=== PATIENT | female | born 1995 | race Caucasian/White ===

== ENCOUNTER 2017-10-18 11:45 | Emergency (ER) | payer OTHER, SELFPAY ==
[2017-10-18 11:46] VITALS: BP 155/97; PULSE 107; RESP 17; TEMP 37; O2SAT 95; BMI 30.5
[2017-10-18 12:57] LABS: Absolute Lymphocyte Count 2.38 X10^3/ul (0.83-4.51); Absolute Neutrophil Count 3.3 X10^3/uL (2.0-7.7); Basophil# 0.06 X10^3/uL; Basophil% 0.9 % (0-1); Eosinophil# 0.12 X10^3/uL; Eosinophils% 1.9 % (0-5); Hematocrit 41.2 % (37-47); Hemoglobin 13.8 g/dl (12.0-15.0); Lymphocyte # 2.38 X10^3/ul (4.0); Lymphocyte % 37.5 % (19-41); Mean Corp Hgb Conc 33.5 g/gl (32-36); Mean Corpuscular Hgb 30.5 pg (27.0-32.0); Mean Corpuscular Volume 90.9 fL (81-99); Monocyte# 0.53 X10^3/uL; Monocyte% 8.3 % (0-10); Neutrophil # 3.25 X10^3/uL (2.7-7.7); Neutrophil % 51.2 % (47-70); Platelet Count 285 K/mm3 (150-450); RBC Distribution Width CV 12.1 % (11.6-14.6); RBC Distribution Width SD 39.3 fl (35.1-43.9); Red Blood Count 4.53 M/mm3 (4.2-5.4); White Blood Count 6.4 K/mm3 (4.4-11.0)
[2017-10-18 12:58] LABS: POSITIVE COUNT NO; POSITIVE DIFFERENTIAL NO; POSITIVE MORPHOLOGY NO
[2017-10-18] MEDS: Mag Hydrox/Al Hydrox/Simeth 30 ML UDC PO (13:01)
[2017-10-18] MEDS: Ketorolac 30 MG/ML Syringe IV (13:01)
[2017-10-18] MEDS: 0.9% Normal Saline 1,000 ML 1000 ML IV (13:01)
[2017-10-18 13:06] LABS: Anion Gap 9 (5-15); BUN 12 mg/dL (7-18); BUN/Creat Ratio 18.8 RATIO (10-20); Calcium,Total 8.8 mg/dL (8.5-10.1); Chloride 106 mmol/L (98-107); Creatinine, Serum 0.64 mg/dL (0.55-1.02); EST Glomerular Filtration Rate 124 mL/min (>60); Est Glom Filt Rate - Afr Amer 150 mL/min (>60); Estimated Creatinine Clearance 115.02 ml/min; Glucose 84 mg/dL (70-110); Potassium 4.2 mmol/L (3.5-5.1); Sodium Level 141 mmol/L (136-145)
[2017-10-18 13:11] LABS: Pregnancy, Serum, hCG Quali. NEGATIVE Negative (0-9 Nonpreg)
--- NOTE | 2017-10-18 13:15 | ED.VISSUMM ---
- ER Visit Summary Date of Service: 10/18/17 Chief Complaint: Abdominal pain History of Present Illness: The patient is a [address] Segura. She reports that she has abdominal pain began approximately 20 minutes ago. It is a sharp diffuse pain that is 10 out of 10 at worst and 7 out of 10 currently. Is worsened by nothing relieved by nothing. She denies any nausea, vomiting, or diarrhea. Her last bowel was yesterday. She denies any melena or hematochezia. She reports that she has blood in her stool before and during her menstrual cycle that is bright red. She does have a history of hemorrhoids. Her last menstrual period was approximately 3 weeks ago. She denies any dysuria or frequency. No history of fatty food intolerance. No family history of gallstones, Crohn's, or ulcerative colitis. Patient reports that she has not had this previously. Physical Examination: Vitals: Stable. Afebrile. General: Well-nourished and well-developed. Head: Normocephalic atraumatic. Neck: Supple, no lymphadenopathy. No JVD. Nontender. Cardiovascular: Regular rate and rhythm. No murmurs. Respiratory: No respiratory distress. Clear to auscultation bilaterally. Abdominal: Soft, mild diffuse tenderness to palpation, nondistended, normal bowel sounds. No guarding, rebound, or peritoneal signs. Back: Nontender. Extremities: Nontender, no edema. Skin: Normal color, no rash. Neurologic: Alert and oriented ?3. Cranial nerves II through XII are intact. Normal strength and sensation. Psych: Normal affect. Test Results: CBC is normal. Chem-7 is normal. test is negative. Emergency Department Course and Treatment: Patient is given dose of Toradol IV. She was treated with Maalox and simethicone p.o. She has had significant relief. Treatment Plan: Patient will be discharged with instructions to follow-up with her primary care physician in 1-2 days if not improving. Return to the emergency department for any worsening symptoms. Disposition: To home in improved and stable condition. Impression: 1. Abdominal pain, uncertain cause. This note was generated with [employer] software. It may contain incorrect words, spelling, and punctuation that were not noted in review of the chart prior to signing ED Disposition - Plan for ED Patient: Chief Complaint: Abd Pain Instructions: ED Abdominal Pain Unkn Cause Referrals: Viktoriya Segura PA-C [Primary Care Provider] - 1-2 Days if not improving
[2017-10-18 13:35] VITALS: BP 115/76; PULSE 83; RESP 16; O2SAT 99
== END 2017-10-18 13:39 | disposition home or self-care (01) ==
LOC: ED 12:31
PROVIDERS: Emergency Provider Emergency Medicine; Family Provider Family Medicine; PCP Family Medicine
DX: R10.9 Unspecified abdominal pain (principal); Z87.19 Personal history of other diseases of the digestive system
CPT/HCPCS: 80048; 84703; 85025; 99284; J7030

== ENCOUNTER 2021-12-31 08:38 | Outpatient (CLI) | payer BC, SELFPAY ==
[2021-12-31 09:45] LABS: Hematocrit 37.6 % (37-47); Hemoglobin 12.4 g/dL (12.0-15.0); Mean Corpuscular Volume 90.8 fL (81-99); Platelet Count 238 K/mm3 (150-450); RBC Distribution Width SD 42.6 fl (35.1-43.9); Red Blood Count 4.14 M/mm3 (4.2-5.4); White Blood Count 11.1 K/mm3 (4.4-11.0)
[2021-12-31 09:49] LABS: Glucose Challenge Gest 1H 50g 128 mg/dL (70-140)
== END 2021-12-31 23:59 | disposition home or self-care (01) ==
LOC: WOBLAB 08:39
PROVIDERS: PCP Family Medicine; Visit Provider Student in an Organized Health Care Education/Training Program
DX: Z34.83 Encounter for supervision of other normal pregnancy, third trimester (principal)
CPT/HCPCS: 36415; 82950; 85027

== ENCOUNTER 2022-04-01 07:25 | Inpatient (IN) | payer BC, MEDICAID, SELFPAY ==
[2022-04-01] VITALS (13 sets, daily range): BP systolic 106–136; BP diastolic 55–80; PULSE 84–121; TEMP 36.3–36.8; O2SAT 94–99; BMI 36.8
[2022-04-01] MEDS: Lactated Ringers 1,000 ML 50 ML IV (07:45)
[2022-04-01 08:13] LABS: Absolute Lymphocyte Count 2.24 X10^3/uL (0.83-4.51); Absolute Neutrophil Count 5.3 X10^3/uL (2.0-7.7); Basophil# 0.03 X10^3/uL; Basophil% 0.4 % (0-1); Eosinophil# 0.06 X10^3/uL; Eosinophils% 0.7 % (0-5); Hematocrit 36.2 % (37-47); Hemoglobin 11.9 g/dL (12.0-15.0); Lymphocyte # 2.24 X10^3/ul (0.83-4.51); Lymphocyte % 26.9 % (19-41); Mean Corp Hgb Conc 32.9 g/dL (32-36); Mean Corpuscular Hgb 29.5 pg (27.0-32.0); Mean Corpuscular Volume 89.8 fL (81-99); Mean Platelet Vol. 10.7 fl (6.2-12.0); Monocyte# 0.61 X10^3/uL; Monocyte% 7.3 % (0-10); NRBC Flagged by Analyzer 0 % (0-5); Neutrophil # 5.33 X10^3/uL (2.7-7.7); Neutrophil % 63.9 % (47-70); Platelet Count 188 K/mm3 (150-450); RBC Distribution Width CV 13.4 % (11.6-14.6); RBC Distribution Width SD 43.7 fl (35.1-43.9); Red Blood Count 4.03 M/mm3 (4.2-5.4); White Blood Count 8.3 K/mm3 (4.4-11.0)
--- NOTE | 2022-04-01 08:23 | HP.PCM.OB_ITS ---
History and Physical Date of Admission: 04/01/22 HPI: 26-year-old at 40/5 weeks, ANGELINA 03/27/2022 by LMP consistent with early ultrasound, admitted for term induction of labor. Denies regular contractions, leaking of fluid, vaginal bleeding. Reports movement. Denies headache, vision changes, chest pain or shortness of breath, nausea or vomiting, diarrhea or constipation, fevers or chills. complicated by: Class I obesity, rubella equivocal, GBS positive. 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 Cyst on left knee removed 2000 2. Pilonidal cyst 2018 Allergies: No known drug allergies Family history: Noncontributory Social history: Denies tobacco, alcohol, drug use Review of system: Negative otherwise stated above Physical exam Vitals:Temp 98.3 ?F, pulse 112, blood pressure 136/80, pulse ox 97% on room air General: No acute distress Cardiac: Regular rhythm Respiratory: Clear to auscultation bilaterally Abdomen: Soft, nontender, gravid Extremities: Minimal edema Neurologic: Cranial nerves II through XII grossly intact, no focal deficits Musculoskeletal: Strength 5 out of 5 throughout all extremities Cervical exam: Fingertip per RN labs: A positive Rubella equivocal Hepatitis B neg Syphilis nonreactive HIV negative Varicella immune Gonorrhea/chlamydia negative GBS pos Admission labs: WBC 8.3, hemoglobin/hematocrit 11.9/36.2, platelet 188 FHR: 145/mod micky/+accel/no decel Paul: quiet Assessment/plan:26-year-old at 40/5 weeks, ANGELINA 03/27/2022 by LMP consistent with early ultrasound, admitted for term induction of labor. complicated by: Class I obesity, rubella equivocal, GBS positive. ?Admit to labor and delivery. ? Cytotec induction ? GBS positive, penicillin to be started ? Rubella equivocal, for MMR
[2022-04-01] MEDS: miSOPROStol 25 MCG TABLET VAGINAL (09:01)
[2022-04-01] MEDS: LACTATED RINGERS 500 ML 999 ML IV ×2 (12:40→15:15)
[2022-04-01] MEDS: Penicillin G 3,000,000 Units 50 ML 100 UNITS IV ×3 (13:49→21:31)
[2022-04-01] MEDS: Lactated Ringers 1,000 ML 200 ML IV (16:17)
[2022-04-02] VITALS (30 sets, daily range): BP systolic 105–136; BP diastolic 56–87; PULSE 75–107; TEMP 36.1–36.4; O2SAT 96–99
[2022-04-02] MEDS: Oxytocin 30 units/NS 500 ml 30 UNITS/500 ML IV.SOLN IV (00:10)
[2022-04-02] MEDS: Lactated Ringers 1,000 ML 50 ML IV (00:15)
[2022-04-02] MEDS: Penicillin G 3,000,000 Units 50 ML 100 UNITS IV ×6 (01:37→23:15)
--- NOTE | 2022-04-02 07:40 | PN.OBGYN_ITS ---
Subjective Subjective Patient seen and examined. Had some rest over night. Objective Data Objective Data Vital Signs: Vital Signs Temp Pulse BP Pulse Ox 97.5 F L 95 117/71 97 04/02/22 04:37 04/02/22 07:12 04/02/22 07:12 04/02/22 07:12 Weight: 94.2 kg Body Mass Index (BMI) 36.8 Intake & Output: Intake and Output for Last 24 Hours 03/31/22 04/01/22 04/02/22 23:59 23:59 23:59 Intake Total 5295.00 / 5295.00 135.17 / 135.17 Output Total 3600 / 3600 200 / 200 Balance 1695.00 / 1695.00 -64.83 / -64.83 Lab / Micro Data Result Diagrams: 04/01/22 07:45 Labs: Laboratory Results - last 24 hr 04/01/22 07:45: WBC 8.3, RBC 4.03 L, Hgb 11.9 L, Hct 36.2 L, MCV 89.8, MCH 29.5, MCHC 32.9, RDW Std Deviation 43.7, RDW Coeff of Luis Alberto 13.4, Plt Count 188, MPV 10.7, Immature Gran % (Auto) 0.800, Neut % (Auto) 63.9, Lymph % (Auto) 26.9, [place] % (Auto) 7.3, Eos % (Auto) 0.7, Baso % (Auto) 0.4, Absolute Neuts (auto) 5.3, Absolute Lymphs (auto) 2.24, Nucleated RBC % 0 04/01/22 07:45: Blood Type A POSITIVE, Antibody Screen NEGATIVE Micro: Microbiology 04/01/22 08:00 Nasal Secretion SARS-CoV-2 Antigen (Rapid) - Final Physical Exam Const alert and oriented x3 Resp normal respiratory effort Cardio regular rate Narrative: 2 cm per RN Extremity Extremity Narrative: minimal edema NST FHR Rate Baby A Baseline: 135 Variability:: Moderate Accelerations:: 15 x 15 Decelerations:: None NST Reactive:: Yes FHR Category:: Category I Uterine Activity:: q1-6 Assessment & Plan (1) Elective induction of labor planned: PLAN: 40/6 weeks, term induction of labor. Continue Pitocin induction. Category 1. Patient and family in better spirits this morning. Encourage position changes and movement to help labor.
[2022-04-02] MEDS: Acetaminophen 500 MG Tablet PO ×2 (14:49→14:54)
[2022-04-02] MEDS: Lactated Ringers 1,000 ML 100 ML IV (17:17)
[2022-04-02] MEDS: 0.9% Normal Saline Single 100 ML IV.SOLN. INTRA-UTER (18:27)
--- NOTE | 2022-04-02 19:40 | PCM.PN.OB ---
Subjective Subjective Reports mild cramping. Objective Data Objective Data Vital Signs: Vital Signs Temp Pulse BP Pulse Ox 97.0 F L 93 119/74 98 04/02/22 22:01 04/02/22 22:01 04/02/22 22:01 04/02/22 22:01 Weight: 94.2 kg Body Mass Index (BMI) 36.8 Intake & Output: Intake and Output for Last 24 Hours 03/31/22 04/01/22 04/02/22 23:59 23:59 23:59 Intake Total 5295.00 / 5295.00 1746.90 / 1746.90 Output Total 3600 / 3600 200 / 200 Balance 1695.00 / 1695.00 1546.90 / 1546.90 Lab / Micro Data Result Diagrams: 04/01/22 07:45 Micro: Microbiology 04/01/22 08:00 Nasal Secretion SARS-CoV-2 Antigen (Rapid) - Final Physical Exam Narrative GEN - NAD, AAO x 3 FHR 140, moderate variabliity, + accelerations, n odecelerations TOCO irritability SVE deferred Assessment & Plan (1) 40 weeks gestation of : PLAN: Cat I FHR Robles bulb remains Will resume pitocin
--- NOTE | 2022-04-02 23:38 | PCM.PN.OB ---
Subjective Subjective Contractions intensify. Objective Data Objective Data Vital Signs: Vital Signs Temp Pulse BP Pulse Ox 97.0 F L 84 105/74 98 04/02/22 23:08 04/02/22 23:08 04/02/22 23:08 04/02/22 23:08 Weight: 94.2 kg Body Mass Index (BMI) 36.8 Intake & Output: Intake and Output for Last 24 Hours 03/31/22 04/01/22 04/02/22 23:59 23:59 23:59 Intake Total 5295.00 / 5295.00 2178.40 / 2178.40 Output Total 3600 / 3600 200 / 200 Balance 1695.00 / 1695.00 40 / 40 Lab / Micro Data Result Diagrams: 04/01/22 07:45 Micro: Microbiology 04/01/22 08:00 Nasal Secretion SARS-CoV-2 Antigen (Rapid) - Final Physical Exam Narrative GEN - NAD, AAO x 3 FHR 140, moderate variability, + accelerations, no decelerations TOCO 2/10 min SVE 5/75/-3, BBOW, cephalic Assessment & Plan (1) 40 weeks gestation of : PLAN: Amniotomy performed with clear fluid Cat I FHR
[2022-04-03] VITALS (44 sets, daily range): BP systolic 102–143; BP diastolic 50–88; PULSE 83–124; RESP 16–18; TEMP 36.1–37.1; O2SAT 89–100
[2022-04-03] MEDS: Acetaminophen 500 MG Tablet PO ×2 (00:32→16:22)
[2022-04-03] MEDS: Penicillin G 3,000,000 Units 50 ML 100 UNITS IV ×4 (03:37→16:07)
[2022-04-03] MEDS: LACTATED RINGERS 500 ML 999 ML IV (04:25)
[2022-04-03] MEDS: Lactated Ringers 1,000 ML 200 ML IV ×3 (06:07→16:54)
[2022-04-03] MEDS: fentaNYL-bupivacaine (epidural) 100 ML BAG EPIDURAL ×2 (08:02→12:41)
[2022-04-03] MEDS: 0.9% Saline Lock 10 ML Syringe IV ×2 (09:10→21:22)
[2022-04-03] MEDS: Oxytocin 30 units/NS 500 ml 30 UNITS/500 ML IV.SOLN 16 UNITS IV (12:44)
[2022-04-03] MEDS: Ondansetron 4 MG/2 ML Vial IV (15:20)
[2022-04-03] MEDS: Sodium Citrate/Citric Acid 30 ML UDC PO (16:55)
--- NOTE | 2022-04-03 16:55 | PCM.PN.OB ---
Subjective Subjective Patient has progressed to approximately 6 cm with no advancement of dilation and station for approximately 8 hours. We have discontinued Pitocin on 3 separate occasions when it was maxed out at 20 mIU/min. Even with higher doses of Pitocin contractions were not adequate and when Pitocin is discontinued there are no contractions. heart tones have remained reassuring and reactive. No maternal fever. Patient is demanding we proceed with section as her epidural is not providing adequate pain control and she is approaching 48 hours in the hospital. Rupture of membranes was last evening approximately 1130 after a Robles catheter. I feel section is reasonable given lack of progression, dilation, or descent. We plan to proceed with primary section for failure to progress. We have discussed the risk, benefits, and alternatives of this procedure including the possibly of bleeding, infection, and injury to surrounding structures such as bowel bladder and all questions were answered. The patient desires we proceed. Objective Data Objective Data Vital Signs: Vital Signs Temp Pulse BP Pulse Ox 98.3 F 124 H 143/83 H 100 04/03/22 16:20 04/03/22 16:26 04/03/22 16:21 04/03/22 16:26 Weight: 207 lb 10.807 oz Body Mass Index (BMI) 36.8 Intake & Output: Intake and Output for Last 24 Hours 04/01/22 04/02/22 04/03/22 23:59 23:59 23:59 Intake Total 5295.00 / 5295.00 2234.40 / 2241.40 3619.07 / 3619.07 Output Total 3600 / 3600 200 / 200 1100 / 1100 Balance 1695.00 / 1695.00 2034.40 / 2041.40 2519.07 / 2519.07 Lab / Micro Data Result Diagrams: 04/01/22 07:45 Micro: Microbiology 04/01/22 08:00 Nasal Secretion SARS-CoV-2 Antigen (Rapid) - Final
--- NOTE | 2022-04-03 17:04 | OP.PCM_ITS ---
Maternal Data Information Final ANGELINA: 03/27/22 Final ANGELINA Source: US <20 weeks Gestational age: 41w0d Details Operative Information Date of Procedure: 04/03/22 Pre-Operative Diagnosis: Postdate , Failure to Progress Post-Operative Diagnosis: Postdate , Failure to Progress, Occiput Posterior Presentation, Macrosomia Indications for : Failure to Progress and Failure of Descent Classification: QUIN Procedure Type: low transverse videogame designer #1: Fransico Yang Type of Anesthesia: Epidural Converted to Spinal (With Duramorph) Anesthesiologist: Cheko Montejo Antibiotic Given: Ancef 2 grams IV x1 Drain: Robles to straight drain Estimated Blood Loss: 500 cc Fluids Replaced: Crystalloid Findings Description of Procedure: Surgeon: Den Pride MD, FACOG Procedure: Primary Low Transverse Cervical Caesarean Section Findings: Viable female with Apgars of 8/9 in occiput posterior presentation with clear amniotic fluid and normal three-vessel placenta. Baby weighed 9 pounds 4 ounces. Indication: This is a 26-year-old who presented for induction at 40 weeks 5 days gestation. She progressed to 6 cm but despite Pitocin and 3 Pitocin washouts she failed to progress past 6 cm after 8 hours. It was decided to proceed with section for failure to progress and failure to descend. care has otherwise been uneventful. The patient has been counseled regarding the risk and indications of this procedure including the possibility of bleeding infection and injury to surrounding structures such as bowel bladder. All questions were answered. Procedure: Patient was taken to the operating room where after epidural was converted to spinal anesthesia, the patient was prepped and draped in usual sterile fashion; a Robles catheter had been previously placed. The abdomen was entered through a Pfannenstiel incision and peritoneum was entered bluntly. After developing a bladder flap on the lower uterine segment a low transverse incision was made on the uterus and head was easily delivered onto the operative field the nose mouth and oropharynx were bulb suctioned. Subsequently a viable female was born with Apgars of 8/9. The was noted to cry move all extremities vigorously on the operative field. The umbilical cord was doubly clamped and ligated and handed to the nursery personnel who were present for the delivery. Placenta was delivered and noted to be 3 vessels and normal. Uterus was exteriorized and remaining placental tissue was removed. The uterus was then closed in 2 layers first with running locked 0 Vicryl suture followed by a second imbricating layer with 0 Vicryl suture. 0 Vicryl suture was then used in a horizontal mattress interrupted fashion to affect final hemostasis of the uterine incision line. Normal fallopian tubes and ovaries were visualized and the uterus was returned to the pelvis. Hemostasis was noted and rectus abdominis muscles were reapproximated in the midline with interrupted Number 0 Vicryl suture in a horizontal mattress fashion. Fascia was closed with running Number 1 PDS Strata fix suture. Subcutaneous tissue was irrigated with copious amounts of saline solution and then closed with running 3-0 Vicryl suture. Skin was closed with 4-0 monocryl suture in a running subcuticular fashion. Steri strips and a Mepilex dressing were placed across the incision. The patient tolerated the procedure well and was taken to the recovery room in satisfactory condition. Sponge, needle, and instrument counts were all reportedly correct. EBL was 500 cc. Ancef 2 gms IV was given prior to the procedure. Spicemen to Pathology: None Complications: None Presentation: Positive for Vertex and ROP Amniotic Membrane Rupture Type: Artificial Amniotic Fluid Description: Clear Placental Delivery Description: Spontaneous Placenta Disposition: [facility] Cord Vessel Description: 3 Vessels Cord Entanglement: None A Gender: Female (1 minute): 8 (5 minute): 9 Complications Risks of Surgery Discussed w/Patient: Bleeding, Infection and Injury to surrounding structure(s) including bowel and bladder Complications: None
[2022-04-03] MEDS: Cefazolin 2 GM in 0.9% Normal Saline 100 ML IV (17:09)
[2022-04-03] MEDS: Methylergonovine 0.2 MG/ML Ampul IM (17:35)
[2022-04-03] MEDS: miSOPROStol 200 MCG Tablet 800 MCG VAGINAL (18:32)
[2022-04-03] MEDS: miSOPROStol 200 MCG Tablet 1000 MCG RC (18:32)
[2022-04-03] MEDS: Oxytocin 30 units/NS 500 ml 30 UNITS/500 ML IV.SOLN 167 UNITS IV (18:45)
[2022-04-03] MEDS: Ketorolac 30 MG/ML Syringe IV (21:21)
[2022-04-03] MEDS: Lactated Ringers 1,000 ML 100 ML IV (22:13)
[2022-04-03] MEDS: Acetaminophen 500 MG Tablet 1000 MG PO (22:45)
[2022-04-04] VITALS (8 sets, daily range): BP systolic 103–122; BP diastolic 57–71; PULSE 85–98; RESP 16–18; TEMP 36.2–36.9; O2SAT 94–100
[2022-04-04] MEDS: Cefazolin 1 GM/50 ML BAG IV ×2 (00:57→08:56)
[2022-04-04] MEDS: Acetaminophen 500 MG Tablet 1000 MG PO ×4 (04:13→23:05)
[2022-04-04] MEDS: Ketorolac 30 MG/ML Syringe IV ×3 (04:14→16:41)
[2022-04-04] MEDS: 0.9% Saline Lock 10 ML Syringe IV ×2 (04:14→16:42)
[2022-04-04] MEDS: Enoxaparin 40 MG/0.4 ML Syringe SC (05:39)
[2022-04-04 06:01] LABS: Hemoglobin 11.3 g/dL (12.0-15.0); Mean Corp Hgb Conc 32.3 g/dL (32-36); Mean Corpuscular Hgb 29.5 pg (27.0-32.0); Mean Corpuscular Volume 91.4 fL (81-99); Mean Platelet Vol. 10.7 fl (6.2-12.0); Platelet Count 170 K/mm3 (150-450); RBC Distribution Width CV 13.7 % (11.6-14.6); RBC Distribution Width SD 46.1 fl (35.1-43.9); Red Blood Count 3.83 M/mm3 (4.2-5.4); White Blood Count 12.6 K/mm3 (4.4-11.0)
--- NOTE | 2022-04-04 07:16 | PCM.PN.OB ---
Subjective Subjective No overnight complaints. Pain well controlled. Objective Data Objective Data Vital Signs: Vital Signs Temp Pulse Resp BP Pulse Ox O2 Del Method 97.4 F L 98 16 112/71 94 Room Air 04/04/22 04:03 04/04/22 05:37 04/04/22 05:37 04/04/22 04:03 04/04/22 05:37 04/04/22 05:37 Oxygen Delivery Method Room Air Weight: 207 lb 10.807 oz Body Mass Index (BMI) 36.8 Intake & Output: Intake and Output for Last 24 Hours 04/02/22 04/03/22 04/04/22 23:59 23:59 23:59 Intake Total 2234.40 / 2241.40 6656.40 / 6656.40 666.67 / 666.67 Output Total 200 / 200 2900 / 2900 900 / 900 Balance 2034.40 / 2041.40 3756.40 / 3756.40 -233.33 / -233.33 Lab / Micro Data Result Diagrams: 04/04/22 05:40 Labs: Laboratory Results - last 24 hr 04/04/22 05:40: WBC 12.6 H, RBC 3.83 L, Hgb 11.3 L, Hct 35.0 L, MCV 91.4, MCH 29.5, MCHC 32.3, RDW Std Deviation 46.1 H, RDW Coeff of Luis Alberto 13.7, Plt Count 170, MPV 10.7 Micro: Microbiology 04/01/22 08:00 Nasal Secretion SARS-CoV-2 Antigen (Rapid) - Final Physical Exam Const alert, oriented x3, no apparent distress, average body habitus, healthy appearing and well nourished HEENT normocephalic and moist oral mucous membranes Eyes PERRL Neck full ROM Chest inspection of chest normal and palpation of chest normal Resp normal respiratory effort, no retractions and no use of accessory muscles GI GI Narrative: Soft, nontender, bandage clean dry and intact Extremity normal to inspection, full ROM and no clubbing, cyanosis or edema Psych mental status grossly normal, affect normal, speech normal and activity/motor behavior normal Assessment & Plan (1) delivery delivered: PLAN: Postop day 1 status post primary section for failure to progress. Pain well controlled. Breast-feeding. Possibly discharge home tomorrow
[2022-04-04] MEDS: Senna/Docusate Sodium 1 Tablet PO ×2 (09:50→17:58)
[2022-04-04] MEDS: Ibuprofen 600 MG Tablet PO (23:05)
[2022-04-05 03:00] VITALS: BP 110/56; PULSE 82; RESP 18; TEMP 36.2
[2022-04-05] MEDS: Ibuprofen 600 MG Tablet PO ×4 (05:10→23:28)
[2022-04-05] MEDS: Acetaminophen 500 MG Tablet 1000 MG PO ×3 (05:10→18:22)
--- NOTE | 2022-04-05 06:55 | PCM.PN.OB ---
Subjective Subjective Patient without complaints. Breast-feeding going well. Tolerating diet well. Minimal vaginal bleeding reported. Positive flatus. Ready to go home today. Objective Data Objective Data Vital Signs: Vital Signs Temp Pulse Resp BP Pulse Ox O2 Del Method 97.1 F L 82 18 110/56 L 96 Room Air 04/05/22 03:00 04/05/22 03:00 04/05/22 03:00 04/05/22 03:00 04/04/22 19:50 04/05/22 03:00 Oxygen Delivery Method Room Air Weight: 207 lb 10.807 oz Body Mass Index (BMI) 36.8 Intake & Output: Intake and Output for Last 24 Hours 04/03/22 04/04/22 04/05/22 23:59 23:59 23:59 Intake Total 6656.40 / 6656.40 716.67 / 716.67 Output Total 2900 / 2900 1750 / 1750 Balance 3756.40 / 3756.40 -1033.33 / -1033.33 Lab / Micro Data Result Diagrams: 04/04/22 05:40 Micro: Microbiology 04/01/22 08:00 Nasal Secretion SARS-CoV-2 Antigen (Rapid) - Final Assessment & Plan (1) delivery delivered: PLAN: Doing well postoperative day #2 status post primary section. Will discharge to home with routine instructions.
--- NOTE | 2022-04-05 06:57 | DCINST_ITS ---
Discharge Instructions Diet Discharge Diet: No restrictions Activity May resume sexual activity in: 4-6 weeks Lifting Restrictions: 20 pounds Additional Activity Instructions:: Nothing in the vagina for 4 weeks please; no lifting more than 20-25 lbs for 6 weeks. Use Ibuprophen 800 mg orally every 8 hours as needed for pain. Can also add Tylenol 1000 mg every 8 hours if needed for pain. If Ibuprophen and Tylenol are not effective then use the Oxycodone but keep in mind it can cause serious constipation issues. Drink lots of water. Call if bleeding more than a pad per hour. Use the colace as constipation is a big issue after this type of surgery. Steps and walking are OK. Activity is encouraged but do not over do it !! Dressing / Incision Call your doctor if your incision/area has: Continuous Slow Oozing, Sudden Increased Bleeding, Increased Pain/ Swelling, Increased Redness and Foul Smelling Discharge Call your doctor if you observe: Fever of 101 or Higher, Inability to urinate, Inability to have a bowel movement and Using more than 1 pad per hour Follow Up Care Please Follow Up With: Christine Flores DO When: Call [phone] for appointment to be seen in 2 weeks. Test Results: Test results from this visit will be discussed in further detail at your follow- up appointment, if applicable. Discharge Plan Admission Admit Date/Time: 04/01/22 07:25 Primary Reason for Your Visit: Obstetrical Delivery Attending Provider: Christine Flores Primary Care Provider: Viktoriya Segura Discharge Orders/Prescriptions Prescriptions: New oxycodone 5 mg capsule 5 mg PO Q6H PRN (Reason: pain) 7 Days Qty: 10 0RF docusate sodium 100 mg tablet 100 mg PO BID PRN (Reason: constipation) Qty: 60 1RF Continued DHA 200 mg Capsule 200 mg PO DAILY Referrals / Follow Up: Viktoriya Segura PA-C [Primary Care Provider] - Disposition Disposition (needs filled in before D/C Order can be placed): Home, Self Care
[2022-04-05 08:04] VITALS: BP 102/61; PULSE 86; RESP 18; TEMP 36.3
[2022-04-05] MEDS: Senna/Docusate Sodium 1 Tablet PO (10:50)
--- NOTE | 2022-04-05 12:31 | CM.ED ---
SW Note Referral Source: MD Referral Reason: History of anxiety SW met with MOB and FOB, NASIMA's jonnathan. MOB gave verbal consent for this copy writer to speak to her in the presence of the FOB. Upon arrival in the room SW noted that patient was tearful. MOB indicated that it was beneficial for this copy writer to speak to her. FOB explained that NASIMA was going to get a shower after a night of little sleep. Mom: Clementina PNC: Noemi CASHIER OFFICE Control: Pill Baby: Monica : 04/03/22 Apgars: 9 Weight: 4125 grams Selling Specialist: MESSI Bennett Breast feeding MOBs other children: None Housing: MOB, FOB and nb reside in a house. Transportation: MOB reports access to transportation Supplies: MOB and FOB report they have all nb supplies including carseat, crib, bassinet and pack and play. Supports: NASIMA reports that her support is the FOB and he will be home with her all next week. MOB said that the following week her mother will be with her. NASIMA's mother resides in [facility]. Education Level: MOB graduated from high school. No college. No learning issues or delays. Employment: NASIMA reports she is employed at [employer] in [place]. Patient is planning to take 12 weeks off work. FOB said that the nb will be on his insurance. Agency Involvement: NASIMA reports that she has no [facility], WIC or [facility] involvement. MOB was open to and consented to [facility] and WIC referral. MOB said that she has not had formal counseling but talks to the director of social services at her job on a informal basis for support. MOB reports no legal or CSB history. FOB: jonnathan Marino' Time Together: 6 years Involved with the nb: Yes per FOB Employment: [employer]. Has been at his current job for 8 years. This is FOMerle's first child. FOB reports no MH/AOD or Dv issues. Maternal MH History: NASIMA said it's on my chart for the doctors's office that I have anxiety. MOB said that there is an family history of anxiety and she has always had anxiety. MOB reports she also has had depression in the past. Patient denied any SI/HI. MOB was educated on Post Depression. MOB reports that they did not know what gender they were going to have and she had wanted a boy but now that the nb is here she is excited about the nb and reported I can't wait to get girl clothes. Patient and FOB were educated on safe sleeping, shaken baby syndrome and PPD. MOB reports no alcohol or drug use. MOB said that she quit smoking in 2017. FOB inquired about insurance through [employer]. SW provided FOB and MOB with Medicaid application. SW offered [facility] and WIC referrals and MOB and FOB were open to referrals. SW made referrals to [facility] and WIC for MOB and Nb. Plan: Home at discharge Tracey DUNAWAY
[2022-04-05 14:00] VITALS: BP 105/61; PULSE 81; RESP 18; TEMP 36.7
[2022-04-05] MEDS: Enoxaparin 40 MG/0.4 ML Syringe SC (14:35)
[2022-04-05 19:46] VITALS: BP 116/67; PULSE 86; RESP 18; TEMP 36.6; O2SAT 96
[2022-04-06] MEDS: Acetaminophen 500 MG Tablet 1000 MG PO ×2 (00:32→06:48)
[2022-04-06 02:37] VITALS: BP 108/67; PULSE 81; RESP 16; TEMP 36.3; O2SAT 97
[2022-04-06] MEDS: Ibuprofen 600 MG Tablet PO ×2 (05:41→12:12)
[2022-04-06 09:06] VITALS: BP 126/65; PULSE 88; RESP 17; TEMP 36.7; O2SAT 96
[2022-04-06] MEDS: Enoxaparin 40 MG/0.4 ML Syringe SC (10:34)
[2022-04-06] MEDS: Senna/Docusate Sodium 1 Tablet PO (10:34)
--- NOTE | 2022-04-06 11:42 | PCM.PN.OB ---
Subjective Subjective Patient without complaints. Tolerating diet well and breast-feeding going well. Wants to go home today. Objective Data Objective Data Vital Signs: Vital Signs Temp Pulse Resp BP Pulse Ox O2 Del Method 98.0 F 88 17 126/65 H 96 Room Air 04/06/22 09:06 04/06/22 09:06 04/06/22 09:06 04/06/22 09:06 04/06/22 09:06 04/06/22 09:06 Oxygen Delivery Method Room Air Weight: 207 lb 10.807 oz Body Mass Index (BMI) 36.8 Intake & Output: Intake and Output for Last 24 Hours 04/04/22 04/05/22 04/06/22 23:59 23:59 23:59 Intake Total 716.67 / 716.67 Output Total 1750 / 1750 Balance -1033.33 / -1033.33 Lab / Micro Data Result Diagrams: 04/04/22 05:40 Micro: Microbiology 04/01/22 08:00 Nasal Secretion SARS-CoV-2 Antigen (Rapid) - Final Assessment & Plan (1) delivery delivered: PLAN: Doing well postoperative day #3 status post section. Will discharge to home with routine instructions.
--- NOTE | 2022-04-06 11:43 | PCM.DC.SUM ---
Providers Date of Admission: 04/01/22 Primary Care Physician: Viktoriya Segura PA-C Reason For Visit: PRIMARY C SECTION Diagnosis Discharge Diagnosis (1) delivery delivered: Status: Acute Code(s): O82 - Encounter for delivery without indication Plan: Doing well postoperative day #3 status post section. Will discharge to home with routine instructions. Medications at Discharge Home Medications docosahexaenoic acid 200 mg capsule ( DHA) 200 mg PO DAILY 04/01/22 docusate sodium 100 mg tablet 100 mg PO BID PRN constipation #60 tabs 04/05/22 oxycodone 5 mg capsule 5 mg PO Q6H PRN pain 7 days #10 caps 04/05/22 Hospital Course Summary of Care Provided Hospital Course: Patient was admitted but failed to progress and a section was performed without complication. Postoperatively the patient did well was felt that she was ready for discharge at postoperative day #3. Weight / BMI Weight Weight: 207 lb 10.807 oz Body Mass Index (BMI) 36.8 ABG / Lab / Microbiology Data Result Diagrams: 04/04/22 05:40 Microbiology: Microbiology 04/01/22 08:00 Nasal Secretion SARS-CoV-2 Antigen (Rapid) - Final D/C Instructions Discharge Diet: No restrictions May resume sexual activity in: 4-6 weeks Additional Activity Instructions: Nothing in the vagina for 4 weeks please; no lifting more than 20-25 lbs for 6 weeks. Use Ibuprophen 800 mg orally every 8 hours as needed for pain. Can also add Tylenol 1000 mg every 8 hours if needed for pain. If Ibuprophen and Tylenol are not effective then use the Oxycodone but keep in mind it can cause serious constipation issues. Drink lots of water. Call if bleeding more than a pad per hour. Use the colace as constipation is a big issue after this type of surgery. Steps and walking are OK. Activity is encouraged but do not over do it !! Call your doctor if your incision/area has: Continuous Slow Oozing, Sudden Increased Bleeding, Increased Pain/ Swelling, Increased Redness and Foul Smelling Discharge Call your doctor if you observe: Fever of 101 or Higher, Inability to urinate, Inability to have a bowel movement and Using more than 1 pad per hour Please Follow Up With: Christine Flores DO When: Call [phone] for appointment to be seen in 2 weeks. Meaningful Use Info Meaningful Use Diagnoses (Choose all that apply): None applicable Discharge Plan Admission Admit Date/Time: 04/01/22 07:25 Primary Reason for Your Visit: Obstetrical Delivery Attending Provider: Christine Flores Primary Care Provider: Viktoriya Segura Discharge Orders/Prescriptions Prescriptions: New oxycodone 5 mg capsule 5 mg PO Q6H PRN (Reason: pain) 7 Days Qty: 10 0RF docusate sodium 100 mg tablet 100 mg PO BID PRN (Reason: constipation) Qty: 60 1RF Continued DHA 200 mg Capsule 200 mg PO DAILY Referrals / Follow Up: Viktoriya Segura, PA-C [Primary Care Provider] - Disposition Disposition (needs filled in before D/C Order can be placed): Home, Self Care
== END 2022-04-06 13:05 | disposition home or self-care (01) | DRG 788 ==
PROVIDERS: Obstetrics & Gynecology; Admitting Provider Student in an Organized Health Care Education/Training Program; PCP Family Medicine; Visit Provider Student in an Organized Health Care Education/Training Program
DX: O62.1 Secondary uterine inertia (principal); E66.9 Obesity, unspecified; O48.0 Post-term pregnancy; Z3A.40 40 weeks gestation of pregnancy; O99.824 Streptococcus B carrier state complicating childbirth; Z37.0 Single live birth; O99.213 Obesity complicating pregnancy, third trimester; O64.0XX0 Obstructed labor due to incomplete rotation of fetal head, not applicable or unspecified
CPT/HCPCS: 59025; 59050; 85025; 85027; 86850; 86900; 86901; 87426; 99218; 99251; J7120; A4216; G0378; G0463; J2405

== ENCOUNTER → 2022-04-18 | Outpatient (CLI) | payer BC, SELFPAY | END | disposition home or self-care (01) | LOC: WOBLAB 14:51 | PROVIDERS: PCP Family Medicine; Visit Provider Obstetrics & Gynecology | DX: R30.0 Dysuria (principal) | CPT/HCPCS: 87086; 87088 ==

== ENCOUNTER → 2024-02-06 | Outpatient (CLI) | payer MEDICAID, SELFPAY ==
[2024-02-06 16:16] LABS: Absolute Lymphocyte Count 2.53 X10^3/uL (0.83-4.51); Absolute Neutrophil Count 4.4 X10^3/uL (2.0-7.7); Basophil# 0.07 X10^3/uL; Basophil% 0.9 % (0-1); Eosinophil# 0.34 X10^3/uL; Eosinophils% 4.4 % (0-5); Hematocrit 38.7 % (37-47); Hemoglobin 12.6 g/dL (12.0-15.0); Lymphocyte # 2.53 X10^3/ul (0.83-4.51); Lymphocyte % 32.4 % (19-41); Mean Corp Hgb Conc 32.6 g/dL (32-36); Mean Corpuscular Hgb 29.2 pg (27.0-32.0); Mean Corpuscular Volume 89.8 fL (81-99); Mean Platelet Vol. 9.9 fl (6.2-12.0); Monocyte# 0.48 X10^3/uL; Monocyte% 6.1 % (0-10); NRBC Flagged by Analyzer 0 % (0-5); Neutrophil # 4.36 X10^3/uL (2.7-7.7); Neutrophil % 55.8 % (47-70); Platelet Count 292 K/mm3 (150-450); RBC Distribution Width CV 12.3 % (11.6-14.6); RBC Distribution Width SD 40.4 fl (35.1-43.9); Red Blood Count 4.31 M/mm3 (4.2-5.4); White Blood Count 7.8 K/mm3 (4.4-11.0)
[2024-02-06 16:19] LABS: Hemoglobin A1c 5.1 % (3.8-5.6)
[2024-02-06 17:31] LABS: HIV - WCH Non-Reactive (Nonreactive); Hepatitis B Surface Antigen Non-Reactive (Nonreactive); Hepatitis C Antibody Non-Reactive (Nonreactive); Rubella IgG Reactive (Nonreactive); Syphilis Antibodies Non-reactive
[2024-02-10 00:07] LABS: Chlamydia By Nucleic Acid AMP Negative (Negative); Gonococcus By Nucleic Acid AMP Negative (Negative)
== END | disposition home or self-care (01) ==
PROVIDERS: PCP Family Medicine; Referring Provider Obstetrics & Gynecology; Visit Provider Obstetrics & Gynecology
DX: Z34.90 Encounter for supervision of normal pregnancy, unspecified, unspecified trimester (principal); E66.9 Obesity, unspecified
CPT/HCPCS: 36415; 83036; 85025; 86703; 86762; 86780; 86803; 86850; 86900; 86901; 87086; 87088; 87340; 87491; 87591; 88175; G0145

== ENCOUNTER → 2024-06-25 | Outpatient (CLI) | payer MEDICAID, SELFPAY ==
[2024-06-25 10:55] LABS: Absolute Lymphocyte Count 1.75 X10^3/uL (0.83-4.51); Absolute Neutrophil Count 5.4 X10^3/uL (2.0-7.7); Basophil# 0.03 X10^3/uL; Basophil% 0.4 % (0-1); Eosinophil# 0.14 X10^3/uL; Eosinophils% 1.8 % (0-5); Hematocrit 36.2 % (37-47); Hemoglobin 11.9 g/dL (12.0-15.0); Lymphocyte # 1.75 X10^3/ul (0.83-4.51); Lymphocyte % 22.5 % (19-41); Mean Corp Hgb Conc 32.9 g/dL (32-36); Mean Corpuscular Hgb 30.1 pg (27.0-32.0); Mean Corpuscular Volume 91.6 fL (81-99); Mean Platelet Vol. 10.9 fl (6.2-12.0); Monocyte# 0.37 X10^3/uL; Monocyte% 4.8 % (0-10); NRBC Flagged by Analyzer 0 % (0-5); Neutrophil # 5.43 X10^3/uL (2.7-7.7); Neutrophil % 69.9 % (47-70); Platelet Count 193 K/mm3 (150-450); RBC Distribution Width CV 12.7 % (11.6-14.6); RBC Distribution Width SD 42.4 fl (35.1-43.9); Red Blood Count 3.95 M/mm3 (4.2-5.4); White Blood Count 7.8 K/mm3 (4.4-11.0)
[2024-06-25 11:01] LABS: Glucose Challenge Gest 1H 50g 139 mg/dL (70-140)
[2024-06-25 11:34] LABS: HIV - WCH Non-Reactive (Nonreactive); Syphilis Antibodies Non-reactive
--- NOTE | 2024-06-25 13:24 | US_ITS ---
PROCEDURE: SECOND AND THIRD TRIMESTER OBSTETRICAL ULTRASOUND REASON FOR EXAM: Female, 29 years old. Evaluate growth LMP: 12/07/2023 TECHNIQUE: Transabdominal PRIOR ULTRASOUND: None. FINDINGS: There is a single intrauterine fetus. The fetus is in a breech presentation. There is demonstrated cardiac activity with a heart rate of 145 bpm. There is a normal amniotic fluid volume. The largest amniotic fluid pocket measures 5.5 cm. The amniotic fluid index (CARSON) is 13.6 cm. The placenta is anterior in location and is not low lying. There are Grade 0 placental changes. The cervix measures 4.6 cm in length. The adnexal regions are not visualized. BIOMETRY: BPD: 7.6 cm: 30 weeks, 5 days HC: 9.4 cm: 28 weeks, 5 days AC: 27.3 cm: 29 weeks, 6 days FL: 5.3 cm: 28 weeks, 1 days CI: 81.6% FL/BPD: 70% FL/HC: 19.4% FL/AC: 21.2% HC/AC: 1.09 age by current US: 29 weeks, 2 days. ANGELINA by current US: 09/08/2024. Estimated weight: 1355 grams, +/- 203 grams, 56 %. Age by LMP: 28 weeks, 5 days. ANGELINA by LMP: 09/12/2024. anatomy is not evaluated at this time. US/OB Limited With Biometrics IMPRESSION: Single live intrauterine fetus in breech presentation with an estimated gestational age of 29 weeks and 2 days. The ANGELINA is 09/08/2024. Electronically Signed: Osvaldo Diez MD at 15:45 EDT ,
== END | disposition home or self-care (01) ==
LOC: US 09:42
PROVIDERS: PCP Family Medicine; Referring Provider Obstetrics & Gynecology; Visit Provider Obstetrics & Gynecology
DX: Z34.80 Encounter for supervision of other normal pregnancy, unspecified trimester (principal); Z98.891 History of uterine scar from previous surgery; Z13.1 Encounter for screening for diabetes mellitus
CPT/HCPCS: 36415; 76816; 82950; 85025; 86703; 86780

== ENCOUNTER → 2024-07-02 | Outpatient (CLI) | payer MEDICAID, SELFPAY ==
[2024-07-02 08:02] LABS: Glucose GTT-Gestation. Fasting 95 mg/dL (<105)
[2024-07-02 08:55] LABS: Glucose GTT-Gestational 1 Hr 187 mg/dL (<190)
[2024-07-02 09:32] LABS: Glucose GTT-Gestational 2 Hr 123 mg/dL (<165)
[2024-07-02 11:10] LABS: Glucose GTT-Gestational 3 Hr 125 L (<145)
== END | disposition home or self-care (01) ==
LOC: LAB 06:48
PROVIDERS: PCP Family Medicine; Referring Provider Obstetrics & Gynecology; Visit Provider Obstetrics & Gynecology
DX: Z13.1 Encounter for screening for diabetes mellitus (principal)
CPT/HCPCS: 36415; 82951; 82952

== ENCOUNTER 2024-07-15 16:02 | Outpatient (RCR) | payer MEDICAID, SELFPAY | END 2024-07-22 23:59 | LOC: NS 16:02 | PROVIDERS: PCP Family Medicine; Referring Provider Nurse Practitioner Women's Health; Visit Provider Nurse Practitioner Women's Health | DX: Z71.3 Dietary counseling and surveillance (principal); E66.9 Obesity, unspecified | CPT/HCPCS: 97802 ==

== ENCOUNTER → 2024-07-23 | Outpatient (CLI) | payer MEDICAID, SELFPAY | END | disposition home or self-care (01) | LOC: US 12:19 | PROVIDERS: PCP Family Medicine; Referring Provider Obstetrics & Gynecology; Visit Provider Obstetrics & Gynecology | DX: O24.419 Gestational diabetes mellitus in pregnancy, unspecified control (principal); Z3A.32 32 weeks gestation of pregnancy | CPT/HCPCS: 76816 ==

== ENCOUNTER 2024-07-26 13:34 | Outpatient (RCR) | payer MEDICAID, SELFPAY | END 2024-08-21 23:59 | LOC: NS 13:34 | PROVIDERS: PCP Family Medicine; Referring Provider Nurse Practitioner Women's Health; Visit Provider Nurse Practitioner Women's Health | DX: Z71.3 Dietary counseling and surveillance (principal); O24.419 Gestational diabetes mellitus in pregnancy, unspecified control; E66.9 Obesity, unspecified | CPT/HCPCS: 97803 ==

== ENCOUNTER → 2024-08-18 | Outpatient (CLI) | payer MEDICAID, SELFPAY | END | disposition home or self-care (01) | LOC: LABSPEC 16:10 | PROVIDERS: PCP Family Medicine; Referring Provider Obstetrics & Gynecology; Visit Provider Obstetrics & Gynecology | DX: Z34.80 Encounter for supervision of other normal pregnancy, unspecified trimester (principal) | CPT/HCPCS: 87081 ==

== ENCOUNTER → 2024-08-20 | Outpatient (CLI) | payer MEDICAID, SELFPAY ==
--- NOTE | 2024-08-20 10:03 | US_ITS ---
STUDY: SECOND AND THIRD TRIMESTER OBSTETRICAL ULTRASOUND REASON FOR EXAM: Female, 29 years old growth -- 36 weeks LMP: 12/07/2023 TECHNIQUE: Transabdominal TECHNICAL QUALITY: Adequate. PRIOR ULTRASOUND: 07/23/2024. FINDINGS: There is a single intrauterine fetus. The fetus is in a cephalic presentation. There is demonstrated cardiac activity with a heart rate of 135 bpm. There is a normal amniotic fluid volume. The largest amniotic fluid pocket measures 5.2 cm. The amniotic fluid index (CARSON) is 12.3 cm. The placenta is anterior in location and is not low lying. There are Grade 2 placental changes. The bilateral adnexal regions are normal. BIOMETRY: BPD: 9.2: 37 weeks, 4 days HC: 33.0: 37 weeks, 3 days AC: 33.8: 37 weeks, 5 days FL: 6.8: 35 weeks, 1 days CI: FL/BPD: FL/HC: FL/AC: HC/AC: age by current US: 37 weeks, 1 days. ANGELINA by current US: 09/09/2024. Estimated weight: 3134 grams, +/- 470 grams, 67 %. age by prior US: weeks, days. ANGELINA by prior US: . Age by LMP: 36 weeks, 5 days. ANGELINA by LMP: 09/12/2024. US/OB Limited With Biometrics IMPRESSION: Single live fetus in a vertex presentation. survey not performed on this exam. Placenta is grade 2 and is not low-lying. Cervix is closed. age by current US: 37 weeks, 1 days. ANGELINA by current US: 09/09/2024. Estimated weight: 3134 grams, +/- 470 grams, 67 %. Electronically Signed: Tevin Valle MD at 16:36 EST ,
== END | disposition home or self-care (01) ==
LOC: US 10:00
PROVIDERS: PCP Family Medicine; Referring Provider Obstetrics & Gynecology; Visit Provider Obstetrics & Gynecology
DX: O24.419 Gestational diabetes mellitus in pregnancy, unspecified control (principal); Z3A.00 Weeks of gestation of pregnancy not specified
CPT/HCPCS: 76816

== ENCOUNTER 2024-09-03 14:45 | Outpatient (CLI) | payer MEDICAID, SELFPAY ==
[2024-09-03 14:57] VITALS: BP 124/80; PULSE 96; RESP 16; TEMP 36.9
[2024-09-03 15:35] LABS: Bedside Glucose 91 mg/dL (74-106)
[2024-09-03 15:43] VITALS: BMI 35.8
--- NOTE | 2024-09-04 11:03 | OB.TRI.HP_ITS ---
HPI - General General Date of Service: 09/03/24 HPI Narrative CHARLEY BREAUX, is a 29 F who presents at 38.5 with brown tinged vaginal bleeding with wiping. presented to for evaluation. no ctx, lof. active fetus. Maternal Data Information ANGELINA Calculator Estimated Delivery Date Method Current WG Current Estimate 09/12/24 LMP (Uncertain) 38w 6d Other Estimates 09/14/24 Ultrasound #1 38w 4d PFSH PFSH Medical History Former smoker delivery delivered 40 weeks gestation of Elective induction of labor planned Asthma Depression Anxiety Home Medications ?Medication ?Instructions ?Recorded ?Last Taken ?Type multivit-min no.71-iron fum 28 cap PO DAILY 01/30/24 Unknown History mg-folate no.1 1 mg-dha 300 mg capsule (PNV-[place]) blood sugar diagnostic (Blood #50 ea 07/02/24 Unknown Rx Glucose Test strips) blood-glucose meter #1 ea 07/02/24 Unknown Rx lancets 30 gauge (Droplet Lancets) #200 ea 07/02/24 Unknown Rx Allergy/AdvReac Type Severity Reaction Status Date / Time No Known Allergies Allergy Verified 09/03/24 15:11 Family History Grandmother Cancer Paternal Surgical History S/P History of surgery Social History adopted: No household members: significant other and children number of children: 1 current occupational status: employed current occupation: [employer] current occupational exposures/hazards: No pets and animals: Yes pets and animals: dog(s) history of recent travel: No sexually active: Yes Smoking Status: Former smoker alcohol intake: never substance use type: does not use well-balanced diet: about half the time caffeine: No eating out: 1-3 times/week during the past year weight has: increased > 10 lbs what type of physical activity do you participate in: none tex/samaritan: None seatbelt use: always do you feel safe at home: Yes additional social history: [employer]- [employer] History 1 Elective abortions Hx Para 1 Spontaneous abortions Hx # Term Pregnancies Ectopic pregnancies Hx # Pregnancies Multiple births # of living children 1 Past Pregnancies Del. Date Name GA/Weeks Outcome Route Bth Weight Infant Gen Labor Lgth Anesthesia Del Junioratn Provider FOB 04/03/22 Monica 41 live - full term 9lbs 2oz Female epidural [facility] Visit Details Expected Delivery Route/Plan for repeat section Plans Covid status: [] Flu vaccine: [] Tdap vaccine: [] Rhogam: na LARC form signed: [] movement and labor precautions reviewed. Problem list reviewed and updated with the most current plan of care details and appropriate orders placed. Relevant counseling for the gestational age provided. Continue routine care and follow up unless otherwise noted in visit notes/problem list details OB Flowsheet Initial Weight: Not Recorded Date -?-?-?-?-?-?-?-?-?-?-?-?- EGA Weight BP Urine Prot -?-?-?-?-?-?-?-?-?-?-?-?- Glucose FHR FuHt Pres Dilation -?-?-?-?-?-?-?-?-?-?-?-?- Effaced St Visit Note 02/06/24 -?-?-?-?-?-?-?-?-?-?-?-?- 8w 5d 210 lb 128/89 -?-?-?-?-?-?-?-?-?-?-?-?- 169 -?-?-?-?-?-?-?-?-?-?-?-?- JV- CRL consiste nt with LMP> declines NIPT. planning rpt section. 03/05/24 -?-?-?-?-?-?-?-?-?-?-?-?- 12w 5d 205 lb 8 oz 121/82 Nega tive -?-?-?-?-?-?-?-?-?-?-?-?- Negative 175 -?-?-?-?-?-?-?-?-?-?-?-?- KW- no vb/crampi ng. anatomy US ordered. 04/02/24 -?-?-?-?-?-?-?-?-?-?-?-?- 16w 5d 202 lb 4 oz 119/81 Nega tive -?--?-?-?-?-?-?-?-?-?-?-?- Negative 158 -?-?-?-?-?-?-?-?-?-?-?-?- KW- no vb/crampi ng. US on 04/16. declines AFP 04/30/24 -?-?-?-?-?-?-?-?-?-?-?-?- 20w 5d 201 lb 96/57 Negative -?-?-?-?-?-?-?-?-?-?-?-?- Negative 150 20 -?-?-?-?-?-?-?-?-?-?-?-?- SM- no vb lof go od fm nor egular ctx discussed headaches 05/28/24 -?-?-?-?-?-?-?-?-?-?-?-?- 24w 5d 204 lb 6 oz 100/69 Nega tive -?-?-?-?-?-?-?-?-?-?-?-?- Negative 165 -?-?-?-?-?-?-?-?-?-?-?-?- JV- no lof, vagi nal bleeding, or dec fm JV- no lof, vaginal bleeding , or dec fm. going to [place] for lucia 06/25/24 -?-?-?-?-?-?-?-?-?-?-?-?- 28w 5d 204 lb 118/65 Negative -?-?-?-?-?-?-?-?-?-?-?-?- Negative 160 28 -?-?-?-?-?-?-?-?-?-?-?-?- SM- no vb lof go od fm no reuglar ctx feeling tired. SM- no vb lof good fm no reu glar ctx feeling tired. note sent to schedule csection discussed tdap patient to decide 07/09/24 -?-?-?-?-?-?-?-?-?-?-?-?- 30w 5d 199 lb 127/84 Negative -?-?-?-?-?-?-?-?-?-?-?-?- Negative 145 31 -?-?-?-?-?-?-?-?-?-?-?-?- SM- no vb lof go od fm nor egualr ctx SM- no vb lof good fm nor eg ualr ctx, BS reveiwed and doing well, some fastings elevated but improved with stopping eating earlier at night 07/23/24 -?-?-?-?-?-?-?-?-?-?-?-?- 32w 5d 203 lb 118/75 -?-?-?-?-?-?-?-?-?-?-?-?- 140 32 -?-?-?-?-?-?-?-?-?-?-?-?- Sm- no vb lof go od fm no reglar ctx 08/06/24 -?-?-?-?-?-?-?-?-?-?-?-?- 34w 5d 203 lb 6 oz 112/73 -?-?-?-?-?-?-?-?-?-?-?-?- 145 34 -?-?-?-?-?-?-?-?-?-?-?-?- KW- no vb/lof/ct x. good fm. no concerns today. BS reviewed-controlled. US scheduled for 36 weeks 08/18/24 -?-?-?-?-?-?-?-?-?-?-?-?- 36w 3d 203 lb 6 oz 123/85 Nega tive -?-?-?-?-?-?-?-?-?-?-?-?- Negative 130 Cephalic 0 -?-?-?-?--?-?-?-?-?-?-?-?- JV- reactive nst . glucose log normal. no complaints. gbs collected 08/25/24 -?-?-?-?-?-?-?-?-?-?-?-?- 37w 3d 202 lb 6 oz 115/79 Nega tive -?-?-?-?-?-?-?-?-?-?-?-?- Negative 140 -?-?-?-?-?-?-?-?-?-?-?-?- SM- no vb lof go ood fm no reuglar ctx BS controlled 08/31/24 -?-?-?-?-?-?-?-?-?-?-?-?- 38w 2d 205 lb 8 oz 122/80 -?-?-?-?-?-?-?-?-?-?-?-?- 140 -?-?-?-?-?-?-?-?-?-?-?-?- SM- no vb lof go od fm no regular ctx NST FHR Rate Baby A Baseline: 130 Variability:: Moderate Accelerations:: 15 x 15 Decelerations:: None NST Reactive:: Yes FHR Category:: Category I Assessment & Plan (1) Vaginal bleeding during : COMMENT: old bleeding, no cervical change. no contractions. safe for d/c home. has rpt cs scheduled. PLAN: Plan Patient presents for triage evaluation secondary to brown discharge/bleeding. no cervical dilation. no contractions on monitor or felt by pt per nursing. safe for d/c home. FHT: Moderate variability reactive no decelerations category I tracing [place]: no Contractions Assessment and plan: Reactive NST, reassuring maternal and status patient discharged to home to follow-up for scheduled cs or if bleeding resumes. . See problem list details for additional plan information. Charges/Coding Procedures Urinary/Genital 52xxx-59xxx: 14934-12 non-stress test Interp
--- NOTE | 2024-09-04 11:03 | OB.TRI.NOTE ---
HPI - General General Date of Service: 09/03/24 HPI Narrative CHARLEY BREAUX, is a 29 F who presents at 38.5 with brown tinged vaginal bleeding with wiping. presented to for evaluation. no ctx, lof. active fetus. Maternal Data Information ANGELINA Calculator Estimated Delivery Date Method Current WG Current Estimate 09/12/24 LMP (Uncertain) 38w 6d Other Estimates 09/14/24 Ultrasound #1 38w 4d PFSH PFSH Medical History Former smoker delivery delivered 40 weeks gestation of Elective induction of labor planned Asthma Depression Anxiety Home Medications ?Medication ?Instructions ?Recorded ?Last Taken ?Type multivit-min no.71-iron fum 28 cap PO DAILY 01/30/24 Unknown History mg-folate no.1 1 mg-dha 300 mg capsule (PNV-[place]) blood sugar diagnostic (Blood #50 ea 07/02/24 Unknown Rx Glucose Test strips) blood-glucose meter #1 ea 07/02/24 Unknown Rx lancets 30 gauge (Droplet Lancets) #200 ea 07/02/24 Unknown Rx Allergy/AdvReac Type Severity Reaction Status Date / Time No Known Allergies Allergy Verified 09/03/24 15:11 Family History Grandmother Cancer Paternal Surgical History S/P History of surgery Social History adopted: No household members: significant other and children number of children: 1 current occupational status: employed current occupation: [employer] current occupational exposures/hazards: No pets and animals: Yes pets and animals: dog(s) history of recent travel: No sexually active: Yes Smoking Status: Former smoker alcohol intake: never substance use type: does not use well-balanced diet: about half the time caffeine: No eating out: 1-3 times/week during the past year weight has: increased > 10 lbs what type of physical activity do you participate in: none tex/christianity: None seatbelt use: always do you feel safe at home: Yes additional social history: [employer] History 1 Elective abortions Hx Para 1 Spontaneous abortions Hx # Term Pregnancies Ectopic pregnancies Hx # Pregnancies Multiple births # of living children 1 Past Pregnancies Del. Date Name GA/Weeks Outcome Route Bth Weight Infant Gen Labor Lgth Anesthesia Del Locatn Provider FOB 04/03/22 Monica 41 live - full term 9lbs 2oz Female epidural [facility] Visit Details Expected Delivery Route/Plan for repeat section Plans Covid status: [] Flu vaccine: [] Tdap vaccine: [] Rhogam: na LARC form signed: [] movement and labor precautions reviewed. Problem list reviewed and updated with the most current plan of care details and appropriate orders placed. Relevant counseling for the gestational age provided. Continue routine care and follow up unless otherwise noted in visit notes/problem list details OB Flowsheet Initial Weight: Not Recorded Date <del>?</del> EGA Weight BP Urine Prot <del>?</del> Glucose FHR FuHt Pres Dilation <del>?</del> Effaced St Visit Note 02/06/24 <del>?</del> 8w 5d 210 lb 128/89 <del>?</del> 169 <del>?</del> JV- CRL consistent with LMP> declines NIPT. planning rpt section. 03/05/24 <del>?</del> 12w 5d 205 lb 8 oz 121/82 Negative <del>?</del> Negative 175 <del>?</del> KW- no vb/cramping. anatomy US ordered. 04/02/24 <del>?</del> 16w 5d 202 lb 4 oz 119/81 Negative <del>?</del> Negative 158 <del>?</del> KW- no vb/cramping. US on 04/16. declines AFP 04/30/24 <del>?</del> 20w 5d 201 lb 96/57 Negative <del>?</del> Negative 150 20 <del>?</del> SM- no vb lof good fm nor egular ctx discussed headaches 05/28/24 <del>?</del> 24w 5d 204 lb 6 oz 100/69 Negative <del>?</del> Negative 165 <del>?</del> JV- no lof, vaginal bleeding, or dec fm JV- no lof, vaginal bleeding, or dec fm. going to [place] for lucia 06/25/24 <del>?</del> 28w 5d 204 lb 118/65 Negative <del>?</del> Negative 160 28 <del>?</del> SM- no vb lof good fm no reuglar ctx feeling tired. SM- no vb lof good fm no reuglar ctx feeling tired. note sent to schedule csection discussed tdap patient to decide 07/09/24 <del>?</del> 30w 5d 199 lb 127/84 Negative <del>?</del> Negative 145 31 <del>?</del> SM- no vb lof good fm nor egualr ctx SM- no vb lof good fm nor egualr ctx, BS reveiwed and doing well, some fastings elevated but improved with stopping eating earlier at night 07/23/24 <del>?</del> 32w 5d 203 lb 118/75 <del>?</del> 140 32 <del>?</del> Sm- no vb lof good fm no reglar ctx 08/06/24 <del>?</del> 34w 5d 203 lb 6 oz 112/73 <del>?</del> 145 34 <del>?</del> KW- no vb/lof/ctx. good fm. no concerns today. BS reviewed-controlled. US scheduled for 36 weeks 08/18/24 <del>?</del> 36w 3d 203 lb 6 oz 123/85 Negative <del>?</del> Negative 130 Cephalic 0 <del>?</del> JV- reactive nst. glucose log normal. no complaints. gbs collected 08/25/24 <del>?</del> 37w 3d 202 lb 6 oz 115/79 Negative <del>?</del> Negative 140 <del>?</del> SM- no vb lof goood fm no reuglar ctx BS controlled 08/31/24 <del>?</del> 38w 2d 205 lb 8 oz 122/80 <del>?</del> 140 <del>?</del> SM- no vb lof good fm no regular ctx NST FHR Rate Baby A Baseline: 130 Variability:: Moderate Accelerations:: 15 x 15 Decelerations:: None NST Reactive:: Yes FHR Category:: Category I Assessment & Plan (1) Vaginal bleeding during : COMMENT: old bleeding, no cervical change. no contractions. safe for d/c home. has rpt cs scheduled. PLAN: Plan Patient presents for triage evaluation secondary to brown discharge/bleeding. no cervical dilation. no contractions on monitor or felt by pt per nursing. safe for d/c home. FHT: Moderate variability reactive no decelerations category I tracing [place]: no Contractions Assessment and plan: Reactive NST, reassuring maternal and status patient discharged to home to follow-up for scheduled cs or if bleeding resumes. . See problem list details for additional plan information. Charges/Coding Procedures Urinary/Genital 52xxx-59xxx: 74223-99 non-stress test Interp
== END 2024-09-03 15:40 | disposition home or self-care (01) ==
LOC: WPOUT 14:51 → WP 14:52
PROVIDERS: PCP Family Medicine; Referring Provider Registered Nurse; Visit Provider Registered Nurse
DX: O46.93 Antepartum hemorrhage, unspecified, third trimester (principal); O34.219 Maternal care for unspecified type scar from previous cesarean delivery; Z3A.38 38 weeks gestation of pregnancy; Z87.891 Personal history of nicotine dependence
CPT/HCPCS: 59025; 82962; 99221; G0378

== ENCOUNTER 2024-09-07 05:05 | Inpatient (IN) | payer MEDICAID, SELFPAY ==
[2024-09-07] VITALS (15 sets, daily range): BP systolic 105–126; BP diastolic 61–93; PULSE 64–88; RESP 12–17; TEMP 36.1–36.7; O2SAT 94–99; BMI 35.9
[2024-09-07] MEDS: Lactated Ringers 1,000 ML 999 ML IV (05:35)
[2024-09-07 06:02] LABS: Absolute Neutrophil Count 4.1 X10^3/uL (2.0-7.7); Basophil# 0.04 X10^3/uL; Basophil% 0.5 % (0-1); Eosinophil# 0.07 X10^3/uL; Eosinophils% 0.9 % (0-5); Hematocrit 39.1 % (37-47); Hemoglobin 12.9 g/dL (12.0-15.0); Lymphocyte % 36.5 % (19-41); Mean Corpuscular Hgb 29.5 pg (27.0-32.0); Mean Corpuscular Volume 89.5 fL (81-99); Mean Platelet Vol. 11.9 fl (6.2-12.0); Monocyte# 0.47 X10^3/uL; Monocyte% 6.4 % (0-10); NRBC Flagged by Analyzer 0 % (0-5); Neutrophil # 4.09 X10^3/uL (2.7-7.7); Neutrophil % 55.4 % (47-70); Platelet Count 206 K/mm3 (150-450); RBC Distribution Width CV 12.9 % (11.6-14.6); RBC Distribution Width SD 41.9 fl (35.1-43.9); Red Blood Count 4.37 M/mm3 (4.2-5.4); White Blood Count 7.4 K/mm3 (4.4-11.0)
[2024-09-07] MEDS: Acetaminophen 500 MG Tablet 1000 MG PO ×3 (06:32→18:14)
[2024-09-07] MEDS: Sodium Citrate/Citric Acid 30 ML UDC PO (06:32)
[2024-09-07] MEDS: Lactated Ringers 1,000 ML 150 ML IV (06:38)
--- NOTE | 2024-09-07 06:49 | HP.PCM.OB_ITS ---
HPI - General General Date of Admission: 09/07/24 HPI Narrative CHARLEY BREAUX, is a 29 F who presents for RLTCS no vb lof good fm no regular ctx Maternal Data Information ANGELINA Calculator Estimated Delivery Date Method Current WG Current Estimate 09/12/24 LMP (Uncertain) 39w 2d Other Estimates 09/14/24 Ultrasound #1 39w 0d PFSH PFSH Medical History (Updated 09/07/24 @ 05:38 by Claire Araujo) depression Gestational diabetes Former smoker delivery delivered 40 weeks gestation of Elective induction of labor planned Asthma Depression Anxiety Home Medications ?Medication ?Instructions ?Recorded ?Last Taken ?Type multivit-min no.71-iron fum 28 cap PO DAILY 01/30/24 09/06/24 History mg-folate no.1 1 mg-dha 300 mg capsule (PNV-[place]) blood sugar diagnostic (Blood #50 ea 07/02/24 Unknown Rx Glucose Test strips) blood-glucose meter #1 ea 07/02/24 Unknown Rx lancets 30 gauge (Droplet Lancets) #200 ea 07/02/24 Unknown Rx Allergy/AdvReac Type Severity Reaction Status Date / Time No Known Allergies Allergy Verified 09/07/24 05:33 Family History Grandmother Cancer Paternal Surgical History S/P History of surgery Social History adopted: No household members: significant other and children number of children: 1 current occupational status: employed current occupation: [employer] current occupational exposures/hazards: No pets and animals: Yes pets and animals: dog(s) history of recent travel: No sexually active: Yes Smoking Status: Never smoker alcohol intake: never substance use type: does not use well-balanced diet: about half the time caffeine: No eating out: 1-3 times/week during the past year weight has: increased > 10 lbs what type of physical activity do you participate in: none [place]/church: None seatbelt use: always do you feel safe at home: Yes additional social history: [employer] History 1 Elective abortions Hx Para 1 Spontaneous abortions Hx # Term Pregnancies Ectopic pregnancies Hx # Pregnancies Multiple births # of living children 1 Past Pregnancies Del. Date Name GA/Weeks Outcome Route Bth Weight Gen Labor Lgth Anesthesia Del Junioratselene Provider FOB 04/03/22 Monica 41 live - full term 9lbs 2oz Female epidural [facility] Bigg Marino Visit Details Expected Delivery Route/Plan for repeat section Plans Covid status: [] Flu vaccine: [] Tdap vaccine: [] Rhogam: na LARC form signed: [] movement and labor precautions reviewed. Problem list reviewed and updated with the most current plan of care details and appropriate orders placed. Relevant counseling for the gestational age provided. Continue routine care and follow up unless otherwise noted in visit notes/problem list details OB Flowsheet Initial Weight: Not Recorded Date -?-?-?-?-?-?-?-?-?-?-?-?- EGA Weight BP Urine Prot -?-?-?-?-?-?-?-?-?-?-?-?- Glucose FHR FuHt Pres Dilation -?-?-?-?-?-?-?-?-?-?-?-?- Effaced St Visit Note 02/06/24 -?-?-?-?-?-?-?-?-?-?-?-?- 8w 5d 210 lb 128/89 -?-?-?-?-?-?-?-?-?-?-?-?- 169 -?-?-?-?-?-?-?-?-?-?-?-?- JV- CRL consiste nt with LMP> declines NIPT. planning rpt section. 03/05/24 -?-?-?-?-?-?-?-?-?-?-?-?- 12w 5d 205 lb 8 oz 121/82 Nega tive -?-?-?-?-?-?-?-?-?-?-?-?- Negative 175 -?-?-?-?--?-?-?-?-?-?-?-?- KW- no vb/crampi ng. anatomy US ordered. 04/02/24 -?-?-?-?-?-?-?-?-?-?-?-?- 16w 5d 202 lb 4 oz 119/81 Nega tive -?-?-?-?-?-?-?-?-?-?-?-?- Negative 158 -?-?-?-?-?-?-?-?-?-?-?-?- KW- no vb/crampi ng. US on 04/16. declines AFP 04/30/24 -?-?-?-?-?-?-?-?-?-?-?-?- 20w 5d 201 lb 96/57 Negative -?-?-?-?-?-?-?-?-?-?-?-?- Negative 150 20 -?-?-?-?-?-?-?-?-?-?-?-?- SM- no vb lof go od fm nor egular ctx discussed headaches 05/28/24 -?-?-?-?-?-?-?-?-?-?-?-?- 24w 5d 204 lb 6 oz 100/69 Nega tive -?-?-?-?-?-?-?-?-?-?-?-?- Negative 165 -?-?-?-?-?-?-?-?-?-?-?-?- JV- no lof, vagi nal bleeding, or dec fm JV- no lof, vaginal bleeding , or dec fm. going to [place] for lucia 06/25/24 -?-?-?-?-?-?-?-?-?-?-?-?- 28w 5d 204 lb 118/65 Negative -?-?-?-?-?-?-?-?-?-?-?-?- Negative 160 28 -?-?-?-?-?-?-?-?-?-?-?-?- SM- no vb lof go od fm no reuglar ctx feeling tired. SM- no vb lof good fm no reu glar ctx feeling tired. note sent to schedule csection discussed tdap patient to decide 07/09/24 -?-?-?-?-?-?-?-?-?-?-?-?- 30w 5d 199 lb 127/84 Negative -?-?-?-?-?-?-?-?-?-?--?-?- Negative 145 31 -?-?-?-?-?-?-?-?-?-?-?-?- SM- no vb lof go od fm nor egualr ctx SM- no vb lof good fm nor eg ualr ctx, BS reveiwed and doing well, some fastings elevated but improved with stopping eating earlier at night 07/23/24 -?-?-?-?-?-?-?-?-?-?-?-?- 32w 5d 203 lb 118/75 -?-?-?-?-?-?-?-?-?-?-?-?- 140 32 -?-?-?-?-?-?-?-?-?-?-?-?- Sm- no vb lof go od fm no reglar ctx 08/06/24 -?-?-?-?-?-?-?-?-?-?-?-?- 34w 5d 203 lb 6 oz 112/73 -?--?-?-?-?-?-?-?-?-?-?-?- 145 34 -?-?-?-?-?-?-?-?-?-?-?-?- KW- no vb/lof/ct x. good fm. no concerns today. BS reviewed-controlled. US scheduled for 36 weeks 08/18/24 -?-?-?-?-?-?-?-?-?-?-?-?- 36w 3d 203 lb 6 oz 123/85 Nega tive -?-?-?-?-?-?-?-?-?-?-?-?- Negative 130 Cephalic 0 -?-?-?-?-?-?-?-?-?-?-?-?- JV- reactive nst . glucose log normal. no complaints. gbs collected 08/25/24 -?-?-?-?-?-?-?-?-?-?-?-?- 37w 3d 202 lb 6 oz 115/79 Nega tive -?-?-?-?-?-?-?-?-?-?--?-?- Negative 140 -?-?-?-?-?-?-?-?-?-?-?-?- SM- no vb lof go ood fm no reuglar ctx BS controlled 08/31/24 -?-?-?-?-?-?-?-?-?-?-?-?- 38w 2d 205 lb 8 oz 122/80 -?-?-?-?-?-?-?-?-?-?-?-?- 140 -?-?-?-?-?-?-?-?-?-?-?-?- SM- no vb lof go od fm no regular ctx NST FHR Rate Baby A Baseline: 130 Variability:: Moderate Accelerations:: 15 x 15 Decelerations:: None NST Reactive:: Yes FHR Category:: Category I Uterine Activity:: irregular ROS Constitutional Constitutional: Reports systems reviewed and no addt'l complaints, except as documented Eyes Eyes: Denies change in vision ENT HEENT: Reports systems reviewed and no addt'l complaints, except as documented; Denies headache(s) Cardiovascular Cardiovascular: Reports systems reviewed and no addt'l complaints, except as documented; Denies chest pain or dyspnea Respiratory/Chest Respiratory/Chest: Reports systems reviewed and no addt'l complaints, except as documented Gastrointestinal Gastrointestinal: Reports systems reviewed and no addt'l complaints, except as documented; Denies abdominal pain Genitourinary Genitourinary: Reports systems reviewed and no addt'l complaints, except as documented, contractions Details: present (irregular) and movement Details: present; Denies dysuria or genital lesions Musculoskeletal Musculoskeletal: Reports systems reviewed and no addt'l complaints, except as documented Neurologic Neurologic: Reports systems reviewed and no addt'l complaints, except as documented Endocrine Endocrinology: Reports systems reviewed and no addt'l complaints, except as documented Vital Signs Vital Signs Vital Signs: 09/07/24 05:45 Temperature 97.4 F L Temperature Source Temporal Pulse Rate 88 Respiratory Rate 16 Blood Pressure 126/93 H Blood Pressure Mean 104 Blood Pressure Source Monitor Blood Pressure Position Semi-Fowlers Blood Pressure Location Left Arm Pulse Ox 98 Oxygen Delivery Method Room Air Weight Weight: 203 lb Body Mass Index (BMI) 35.9 Physical Exam Const alert, oriented x3, no apparent distress and healthy appearing HEENT normocephalic and moist oral mucous membranes Head and Scalp: atraumatic Neck full ROM, no lymphadenopathy, supple and thyroid normal General: trachea midline Lymph Lymphatic: no lymphadenopathy noted Chest inspection of chest normal Resp normal respiratory effort Cardio regular rate GI soft to palpation and non-tender Inspection: gravid external exam normal Manual OB Exam: estimated gestational size appropriate, presentation cephalic, dilated, effaced and station Extremity normal to inspection General Extremity: Negative for edema Skin no rashes or lesions noted Neuro no focal motor deficits and deep tendon reflexes 2+ bilaterally Motor Exam: strength 5/5 throughout and clonus absent Psych mental status grossly normal Labs Labs Labs: Blood Type A POSITIVE Antibody Screen NEGATIVE Hct 39.1 % (37-47) Hgb 12.9 g/dL (12.0-15.0) Obstetrics Ultrasound Syphilis Total Ab Non-reactive Rubella IgG Antibody Reactive (Nonreactive) Hep Bs Antigen Non-Reactive (Nonreactive) Hepatitis C Antibody Non-Reactive (Nonreactive) Chlamydia DNA (KRISTINE) Negative (Negative) N.gonorrhoeae DNA (KRISTINE) Negative (Negative) HIV 1&2 Antibody Non-Reactive (Nonreactive) Glucose 1 Hr 50 gm 139 mg/dL (70-140) Gest Glucose Tolerance MG/DL Rhogam given: No Assessment & Plan (1) Obesity affecting : COMMENT: HgA1C nl bmi 35 weekly nst 36 weeks on (2) Gestational diabetes mellitus (GDM) affecting , antepartum: COMMENT: start testing 4 times daily. bring log to next appt, dietitian consult sent. (3) Anxiety with depression: COMMENT: no meds (4) History of : COMMENT: RLTCS scheduled for 09/07 @ 7:10 with SM. TOLAC if labor (5) : QUALIFIERS: Weeks of gestation: 38 weeks Qualified Code(s): Z3A.38 - 38 weeks gestation of COMMENT: discussed genetic & carrier, ntd declined, normal anatomy (6) Supervision of other normal : COMMENT: PRR, ANGELINA 09/12/24 boy PC: Nikki Anderson Ned PLAN: Plan After discussing the patient's diagnosis and treatment plan options, patient wishes to proceed with surgical management. I have discussed with the patient the risks, benefits, and alternatives of the procedure which include but are not limited to risks of anesthesia, bleeding, infection, possible damage to bowel, bladder, or surrounding vasculature which could lead to additional surgery to evaluate any complications. Patient agrees to procedure and wishes to proceed. ACOG/uptodate references given for additional information regarding procedure.
--- NOTE | 2024-09-07 06:50 | OP.PCM_ITS ---
Assessment & Plan (1) Obesity affecting : COMMENT: HgA1C nl bmi 35 weekly nst 36 weeks on (2) Gestational diabetes mellitus (GDM) affecting , antepartum: COMMENT: stable pp (3) Anxiety with depression: COMMENT: no meds (4) History of : COMMENT: RLTCS scheduled for 09/07 @ 7:10 with SM. TOLAC if labor (5) : QUALIFIERS: Weeks of gestation: 38 weeks Qualified Code(s): Z3A.38 - 38 weeks gestation of COMMENT: discussed genetic & carrier, ntd declined, normal anatomy (6) Supervision of other normal : COMMENT: PRR, ANGELINA 09/12/24 boy PC: Nikki Anderson (7) delivery delivered: COMMENT: rltcs sm 39 gdm boy name undecided Maternal Data Information ANGELINA Calculator Estimated Delivery Date Method Current WG Current Estimate 09/12/24 LMP (Uncertain) 39w 5d Other Estimates 09/14/24 Ultrasound #1 39w 3d Final ANGELINA Source: LMP Operative Report (OB) Cecarean Details Procedure Type: low transverse Date of Procedure: 09/07/24 Procedure Start Time: 07:42 Procedure Stop Time: 08:20 Pre-Operative Diagnosis: Other Other Pre-Operative diagnosis: see a/p comments Post-Operative Diagnosis: Same as Pre-operative diagnosis Classification: Scheduled Type of Anesthesia: Spinal Special Medications: none Antibiotic Given: Ancef 2 grams IV x1 Drain: Robles to straight drain Estimated Blood Loss: 800 Fluids Replaced: crystalloid Findings Description of surgery: Spinal anesthesia was placed without difficulty. Robles catheter was placed. The patient was placed in the dorsal supine position with leftward tilt. Patient was prepped and draped in the normal sterile fashion. Pfannenstiel skin incision was made with the scalpel and carried through to the underlying layer of fascia with the scalpel. Fascia was nicked in the midline and the incision extended laterally. The rectus bellies were dissected off superiorly and inferiorly with out complication both sharply and bluntly. The peritoneum was entered digitally. The incision was stretched and a low transverse uterine incision was made with the scalpel. The 's head was delivered atraumatically followed by the anterior and posterior shoulders without complication the rest of the infant delivered. The cord was clamped and cut and the was handed off to awaiting nurse. The placenta was delivered spontaneously immediately following and was noted to be intact and have a three- vessel cord. The uterus was exteriorized cleared of all clots and debris, and the incision was closed in a single layer closure using #1 Monocryl. The ovaries and fallopian tubes were noted to be within normal limits. The uterus was returned to the maternal abdomen and gutters were cleared of all clots and debris. The peritoneum was closed with 3-0 Monocryl in a running fashion. Gloves were changed prior to fascial closure. Fascia was closed with 0 PDS in a running fashion. Subcutaneous tissue was copiously irrigated and the skin was closed with 3-0 Monocryl in a subcuticular fashion. Mepilex dressing was applied without complication. Patient was taken to recovery in stable condition. Surgical findings: vertex infant Presentation: Vertex Amniotic Membrane Rupture Type: Artificial Amniotic Fluid Description: Clear Specimen collected: Yes Description of specimen(s) removed: placenta and baby Cord Vessel Description: 3 Vessels Delayed Cord Clamping: Yes Engineering Group Leader feed mill lab technician: Yes Fire Chief Deputy: Cecilia Slade Tasks completed by library assistant: Opening & closing, Retracting and Other (assisting in delivery of the infant) Additional marketing assistant?: No Complications Complications: No Admit VTE Documentation VTE Present on Admission: No VTE Mechan Device Prophylaxis: SCD's Procedures Urinary/Genital 52xxx-59xxx: 96591 Delivery [facility]
--- NOTE | 2024-09-07 06:50 | OP.PCM_ITS ---
Assessment & Plan (1) Obesity affecting : COMMENT: HgA1C nl bmi 35 weekly nst 36 weeks on (2) Gestational diabetes mellitus (GDM) affecting , antepartum: COMMENT: stable pp (3) Anxiety with depression: COMMENT: no meds (4) History of : COMMENT: RLTCS scheduled for 09/07 @ 7:10 with SM. TOLAC if labor (5) : QUALIFIERS: Weeks of gestation: 38 weeks Qualified Code(s): Z3A.38 - 38 weeks gestation of COMMENT: discussed genetic & carrier, ntd declined, normal anatomy (6) Supervision of other normal : COMMENT: PRR, ANGELINA 09/12/24 boy PC: Nikki Anderson (7) delivery delivered: COMMENT: rltcs sm 39 gdm boy name undecided Maternal Data Information ANGELINA Calculator Estimated Delivery Date Method Current WG Current Estimate 09/12/24 LMP (Uncertain) 39w 5d Other Estimates 09/14/24 Ultrasound #1 39w 3d Final ANGELINA Source: LMP Operative Report (OB) Cecarean Details Procedure Type: low transverse Date of Procedure: 09/07/24 Procedure Start Time: 07:42 Procedure Stop Time: 08:20 Pre-Operative Diagnosis: Other Other Pre-Operative diagnosis: see a/p comments Post-Operative Diagnosis: Same as Pre-operative diagnosis Classification: Scheduled Type of Anesthesia: Spinal Special Medications: none Antibiotic Given: Ancef 2 grams IV x1 Drain: Robles to straight drain Estimated Blood Loss: 800 Fluids Replaced: crystalloid Findings Description of surgery: Spinal anesthesia was placed without difficulty. Robles catheter was placed. The patient was placed in the dorsal supine position with leftward tilt. Patient was prepped and draped in the normal sterile fashion. Pfannenstiel skin incision was made with the scalpel and carried through to the underlying layer of fascia with the scalpel. Fascia was nicked in the midline and the incision extended laterally. The rectus bellies were dissected off superiorly and inferiorly with out complication both sharply and bluntly. The peritoneum was entered digitally. The incision was stretched and a low transverse uterine incision was made with the scalpel. The 's head was delivered atraumatically followed by the anterior and posterior shoulders without complication the rest of the infant delivered. The cord was clamped and cut and the was handed off to awaiting nurse. The placenta was delivered spontaneously immediately following and was noted to be intact and have a three- vessel cord. The uterus was exteriorized cleared of all clots and debris, and the incision was closed in a single layer closure using #1 Monocryl. The ovaries and fallopian tubes were noted to be within normal limits. The uterus was returned to the maternal abdomen and gutters were cleared of all clots and debris. The peritoneum was closed with 3-0 Monocryl in a running fashion. Gloves were changed prior to fascial closure. Fascia was closed with 0 PDS in a running fashion. Subcutaneous tissue was copiously irrigated and the skin was closed with 3-0 Monocryl in a subcuticular fashion. Mepilex dressing was applied without complication. Patient was taken to recovery in stable condition. Surgical findings: vertex infant Presentation: Vertex Amniotic Membrane Rupture Type: Artificial Amniotic Fluid Description: Clear Specimen collected: Yes Description of specimen(s) removed: placenta and baby Cord Vessel Description: 3 Vessels Delayed Cord Clamping: Yes Ship Washer booker: Yes Subsurface Augmentee Elint Operator: Cecilia Slade Tasks completed by assistant golf professional: Opening & closing, Retracting and Other (assisting in delivery of the infant) Additional assistant professor of spanish?: No Complications Complications: No Admit VTE Documentation VTE Present on Admission: No VTE Mechan Device Prophylaxis: SCD's Procedures Urinary/Genital 52xxx-59xxx: 12668 Delivery [facility]
--- NOTE | 2024-09-07 06:51 | PCM.DC ---
Discharge Instructions Diet Discharge Diet: No restrictions DC O2, CPAP, BIPAP needs Additional Home O2 Discharge instructions: No Dressing / Incision Discharge Activity: May Not Drive (for 2 weeks or while taking narcotic pain medications.), May Shower and May Take a Tub Bath (in 7 days) May shower in (days): 0 May resume sexual activity in: 4-6 weeks Weight Bearing Status: Full weight bearing Lifting Restrictions: 20 pounds Dressing / Incision Call your doctor if your incision/area has: Continuous Slow Oozing, Sudden Increased Bleeding, Increased Pain/ Swelling, Increased Redness and Foul Smelling Discharge Call your doctor if you observe: Fever of 101 or Higher and Using more than 1 pad per hour (for 2 hours) Suture Line Care: Avoid Pulling/Pushing and Avoid Pinching/Bending Cleanse incision/area with: Soap & Water and Keep Dressing Clean & Dry Follow Up Care Please Follow Up With: Elizabeth Alan MD When: Call [phone] to make an appointment for an incision check in 1-2 weeks. Test Results: Test results from this visit will be discussed in further detail at your follow-up appointment, if applicable. Discharge Plan Admission Admit Date/Time: 09/07/24 05:05 Attending Provider: Elizabeth Alan Primary Care Provider: Viktoriya Segura Discharge Orders/Prescriptions Prescriptions: New hydrocodone-acetaminophen 5-325 mg tablet 1 tab PO Q6H PRN (Reason: pain) 5 Days Qty: 20 0RF naproxen 500 mg tablet 500 mg PO BID PRN PRN (Reason: Pain) Qty: 30 1RF No Action PNV-[place] 28-1-300 mg capsule PO DAILY (DME) blood-glucose meter Misc See Rx Instructions .ROUTE .MEDSUPPLY Qty: 1 0RF Rx Instructions: As directed (DME) Blood Glucose Test Strip See Rx Instructions .ROUTE .MEDSUPPLY Qty: 50 6RF Rx Instructions: Check blood sugars Fasting and 2 hours after breakfast, lunch, and dinner. (DME) lancets [Droplet Lancets] 30 gauge misc See Rx Instructions .ROUTE .MEDSUPPLY Qty: 200 2RF Rx Instructions: Check blood sugars fasting and 2 hours after breakfast, lunch, and supper. Referrals / Follow Up: Viktoriya Segura PA[facility] [Primary Care Provider] - Disposition Disposition (needs filled in before D/C Order can be placed): Home, Self Care
--- NOTE | 2024-09-07 06:51 | PCM.DC ---
Discharge Instructions Diet Discharge Diet: No restrictions DC O2, CPAP, BIPAP needs Additional Home O2 Discharge instructions: No Dressing / Incision Discharge Activity: May Not Drive (for 2 weeks or while taking narcotic pain medications.), May Shower and May Take a Tub Bath (in 7 days) May shower in (days): 0 May resume sexual activity in: 4-6 weeks Weight Bearing Status: Full weight bearing Lifting Restrictions: 20 pounds Dressing / Incision Call your doctor if your incision/area has: Continuous Slow Oozing, Sudden Increased Bleeding, Increased Pain/ Swelling, Increased Redness and Foul Smelling Discharge Call your doctor if you observe: Fever of 101 or Higher and Using more than 1 pad per hour (for 2 hours) Suture Line Care: Avoid Pulling/Pushing and Avoid Pinching/Bending Cleanse incision/area with: Soap & Water and Keep Dressing Clean & Dry Follow Up Care Please Follow Up With: Elizabeth Alan MD When: Call [phone] to make an appointment for an incision check in 1-2 weeks. Test Results: Test results from this visit will be discussed in further detail at your follow-up appointment, if applicable. Discharge Plan Admission Admit Date/Time: 09/07/24 05:05 Attending Provider: Elizabeth Alan Primary Care Provider: Viktoriya Segura Discharge Orders/Prescriptions Prescriptions: New hydrocodone-acetaminophen 5-325 mg tablet 1 tab PO Q6H PRN (Reason: pain) 5 Days Qty: 20 0RF naproxen 500 mg tablet 500 mg PO BID PRN PRN (Reason: Pain) Qty: 30 1RF No Action PNV-[place] 28-1-300 mg capsule PO DAILY (DME) blood-glucose meter Misc See Rx Instructions .ROUTE .MEDSUPPLY Qty: 1 0RF Rx Instructions: As directed (DME) Blood Glucose Test Strip See Rx Instructions .ROUTE .MEDSUPPLY Qty: 50 6RF Rx Instructions: Check blood sugars Fasting and 2 hours after breakfast, lunch, and dinner. (DME) lancets [Droplet Lancets] 30 gauge misc See Rx Instructions .ROUTE .MEDSUPPLY Qty: 200 2RF Rx Instructions: Check blood sugars fasting and 2 hours after breakfast, lunch, and supper. Referrals / Follow Up: Viktoriya Segura PA[facility] [Primary Care Provider] - Disposition Disposition (needs filled in before D/C Order can be placed): Home, Self Care
[2024-09-07 07:02] LABS: Bedside Glucose 68 mg/dL (74-106)
[2024-09-07] MEDS: Cefazolin 2 GM in Syringe IV (07:32)
[2024-09-07] MEDS: Oxytocin 15 Units/NS 250ml 15 UNITS/250 ML IV.SOLN 83 UNITS IV (08:55)
[2024-09-07 09:30] LABS: Syphilis Antibodies Non-reactive
[2024-09-07 09:32] LABS: Bedside Glucose 71 mg/dL (74-106)
[2024-09-07] MEDS: Ketorolac 30 MG/ML Syringe IV ×3 (10:05→21:05)
[2024-09-07] MEDS: 0.9% Saline Lock 10 ML Syringe IV ×3 (12:12→21:05)
[2024-09-07] MEDS: Senna/Docusate Sodium 1 Tablet PO (15:13)
[2024-09-07] MEDS: Enoxaparin 40 MG/0.4 ML Syringe SC (18:15)
[2024-09-08 00:19] VITALS: BP 116/72; PULSE 83; RESP 16; TEMP 36.3; O2SAT 100
[2024-09-08] MEDS: Acetaminophen 500 MG Tablet 1000 MG PO ×4 (00:21→20:35)
[2024-09-08] MEDS: 0.9% Saline Lock 10 ML Syringe IV (03:16)
[2024-09-08] MEDS: Ketorolac 30 MG/ML Syringe IV (03:16)
[2024-09-08 03:19] VITALS: BP 109/72; PULSE 70; RESP 16; TEMP 36.4; O2SAT 99
[2024-09-08 06:33] LABS: Hematocrit 35.6 % (37-47); Hemoglobin 12.1 g/dL (12.0-15.0); Mean Corpuscular Hgb 30.3 pg (27.0-32.0); Mean Corpuscular Volume 89.2 fL (81-99); Mean Platelet Vol. 11.4 fl (6.2-12.0); Platelet Count 186 K/mm3 (150-450); RBC Distribution Width SD 42.4 fl (35.1-43.9); Red Blood Count 3.99 M/mm3 (4.2-5.4); White Blood Count 10.8 K/mm3 (4.4-11.0)
[2024-09-08 06:45] LABS: Bedside Glucose 79 mg/dL (74-106)
--- NOTE | 2024-09-08 08:16 | PCM.PN.OB ---
Subjective Subjective Patient doing well without complaints. Tolerating PO. Ambulating and voiding without difficulty. Feeding well. Denies chest pain, shortness of breath, calf pain/swelling, fevers, chills, lightheadedness. Objective Data Objective Data Vital Signs: Vital Signs Temp Pulse Resp BP Pulse Ox O2 Del Method 97.5 F L 70 16 109/72 99 Room Air 09/08/24 03:19 09/08/24 03:19 09/08/24 03:19 09/08/24 03:19 09/08/24 03:19 09/08/24 03:19 Oxygen Delivery Method Room Air Weight: 203 lb Body Mass Index (BMI) 35.9 Intake & Output: Intake and Output for Last 24 Hours 09/06/24 09/07/24 09/08/24 23:59 23:59 23:59 Intake Total 2270 / 2270 Output Total 1800 / 1800 Balance 470 / 470 Lab / Micro Data 09/08/24 06:25 Labs: Laboratory Results - last 24 hr 09/07/24 05:35: Syphilis Total Ab Non-reactive 09/07/24 09:00: POC Glucose 71 L 09/08/24 06:24: POC Glucose 79 09/08/24 06:25: WBC 10.8, RBC 3.99 L, Hgb 12.1, Hct 35.6 L, MCV 89.2, MCH 30.3, MCHC 34.0, RDW Std Deviation 42.4, RDW Coeff of Luis Alberto 13.0, Plt Count 186, MPV 11.4 Physical Exam Const alert and oriented x3 HEENT normocephalic Eyes PERRL Neck full ROM Resp normal respiratory effort GI soft to palpation GI Narrative: FF below U. Dressing dry and intact Palpation: tender other (appropriately) Assessment & Plan (1) delivery delivered: COMMENT: rltcs sm 39 gdm boy name undecided (2) Gestational diabetes mellitus (GDM) affecting , antepartum: COMMENT: stable pp PLAN: Plan s/p LTCS PPD # 1 1. routine post care 2. breast feeding- support given 3. rh positive 4. rubella immune
[2024-09-08 09:22] VITALS: BP 106/61; PULSE 74; RESP 16; TEMP 36.2; O2SAT 99
[2024-09-08] MEDS: Senna/Docusate Sodium 1 Tablet PO (09:31)
[2024-09-08] MEDS: Naproxen 500 MG Tablet PO ×2 (09:32→17:37)
--- NOTE | 2024-09-08 11:02 | EKG12_ITS ---
Test Reason : CHEST OTHER Blood Pressure : */* mmHG Vent. Rate : 77 BPM Atrial Rate : 77 BPM P-R Int : 142 ms QRS Dur : 96 ms QT Int : 376 ms P-R-T Axes : 34 29 37 degrees QTcB Int : 425 ms Normal sinus rhythm Normal ECG No previous ECGs available Confirmed by CHACE COBB, ADRIA ([id number]), video effects editor JOSE LUIS DE ANDA ([id number]) on 09/09/2024 5:56:10 AM Referred By: Elizabeth Alan Confirmed By: ADRIA MAS MD
--- NOTE | 2024-09-08 11:02 | EKG12_ITS ---
Test Reason : CHEST OTHER Blood Pressure : */* mmHG Vent. Rate : 77 BPM Atrial Rate : 77 BPM P-R Int : 142 ms QRS Dur : 96 ms QT Int : 376 ms P-R-T Axes : 34 29 37 degrees QTcB Int : 425 ms Normal sinus rhythm Normal ECG No previous ECGs available Confirmed by CHACE COBB, ADRIA ([id number]), online content editor JOSE LUIS DE ANDA ([id number]) on 09/09/2024 5:56:10 AM Referred By: Elizabeth Alan Confirmed By: ADRIA MAS MD
--- NOTE | 2024-09-08 14:19 | CASEMGMT ---
Social Work Assessment Labor and Delivery Unit Patient Address:[address] [place] [id number] Phone number: [phone] Date of Referral: 09/07/24 Time of Referral:? 541 Referred By: Dr. Alan Date of Intervention: ?? 09/08/24 Time of Intervention:? 1129 Reason for Referral:? mental health Sw completed chart review and acknowledges social work consult due to maternal mental health history. Sw presented to bedside and introduced self to mother of baby (MOB- Clementina) and father of baby (FOMerle- Ned). Sw explained reason for sw involvement and completed psychosocial assessment. History obtained from: medical records, MOB and FOB. Household composition: Currently residing in the family home is KAVYA DEL REAL, their two year old daughter, Monica and baby when ready for discharge. Parents deny any issues or concerns with housing, reporting it to be safe and secure. Patient's parent/guardian status:? ?Parents report they have been together for 9 years after meeting and dating each other in high school. baby is second baby for parents together. No concerns reported of domestic violence or intimate partner violence. Medical History: ?NASIMA is 29 year old female who is 2, para 1- now 2 following labor and delivery of . NASIMA received routine care during with [facility]. NASIMA presented to hospital for scheduled repeat on 09/07/24 at 39 weeks gestation.Baby boy, who does not have a confirmed name yet, parents report it will either be Sera Jean or Anel Jean, was born weighing 7lb 15oz with apgars of 8 and 9 at one and five minutes of life, respectfully. NASIMA states that she is working on breast feeding and baby will be followed by Dr. Ashley for pediatrics. Educational Status:? Both parents graduated high school together, no advanced degree. Financial Status: Parents are gainfully employed outside of the home. NASIMA works at [employer] and KAVYA works at [employer]. 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 Supplies: All necessary baby supplies obtained, including: car seat, safe sleep space, clothes, diapers and wipes. Childcare/Caregiver(s):? MOB will be the primary caregiver to baby, and when both parents are working they will have help from paternal grandma. Transportation:?? Both parents have their drivers license and reliable means of transportation, no barriers at this time. Programs/Agencies Involved: MOB is connected to insurance through [employer] ([employer]) and [facility]. MOB states that they are also connected to [employer] with their daughter, and baby will be added to case for additional assistance. Children Services/Legal Issues:??No history of children services involvement, no issues or concerns warranting referral to be made at this time. ? Behavioral Health Issues: ??Mental Health History: FOB denies mental health history. MOB states that she has been diagnosed with anxiety, depression and depression. MOB states that when her daughter was born she felt overwhelmed, slightly depressed and had anxious thoughts. MOB states that she is not prescribed any medications to help her manage her mental health. MOB state that right now she is feeling okay following her delivery. MOB states that she was not fully prepared to become a mom, and was overwhelmed with how much responsibility it was to have a baby, even though prior to she felt completely prepared. MOB states that now that she has done it once, she feels much more ready and prepared this time. MOB denies feeling anxious, overwhelmed or sad. ??? Substance Use History:??Parents deny substance use prior to and during . Family History:???Parents deny family history of substance use and significant mental health diagnoses. ?? Drug Screens: No drug screens observed during chart review. Family/Social Stressors:? Parents deny any issues, concerns or stressors at this time. Support Systems: MOB reports to having support from FOB and both sets of grandparents. Depression/Shaken Baby/Safe Sleeping: Vesta educated parents on signs and symptoms of baby blues and mood and anxiety disorders to be mindful of during this period. FOB states that if MOB were to struggle he would be able to recognize that and would know how to help and support her. MOB states that she feels comfortable talking to her OBGYN if she were to struggle with her mental health. Vesta educated parents on shaken baby prevention and ABCs of safe sleep. Parents express understanding. ASSESSMENT:? MOB and baby admitted following labor and delivery of . MOB able to recognize that she struggled with her mental health after her first baby was born. MOB states that she has anxiety and depression at baseline, but nothing that impacts her daily ability to function, care for herself or her daughter. MOB states that if she were to struggle with any symptoms she would talk to FOB and reach out to her OBGYN. MOB denies any anxiety, depression or sadness at this time and reports to feeling a garcia with baby. FOB observed to change baby's diaper and hold him lovingly and affectionately. MOB states that feeding is going okay, and she is excited for her older daughter to meet the baby when they are discharged. MOB and FOB both pleasant and engaging throughout completion of psychosocial assessment. Parents have obtained all necessary baby supplies and have natural supports in place. PLAN:?? No other services requested or indicated. MOB and baby to be discharged when medically ready. Parents were provided literature regarding: signs and symptoms of baby blues and mood and anxiety disorders, [employer], shaken baby prevention, ABCs of safe sleep and a list of county resources that are available for them should any needs present themselves. Agustin Valdez, SLURRY CONTROL TENDER, DECK AND HULL ASSEMBLER
[2024-09-08 14:22] VITALS: BP 102/73; PULSE 78; RESP 16; TEMP 36.8; O2SAT 100
[2024-09-08 19:45] VITALS: BP 113/79; PULSE 72; RESP 16; TEMP 36.3; O2SAT 98
[2024-09-08] MEDS: Enoxaparin 40 MG/0.4 ML Syringe SC (19:51)
[2024-09-09 01:25] VITALS: BP 112/71; PULSE 79; RESP 16; TEMP 36.9; O2SAT 96
[2024-09-09] MEDS: Naproxen 500 MG Tablet PO ×2 (01:25→10:27)
[2024-09-09] MEDS: Acetaminophen 500 MG Tablet 1000 MG PO ×2 (02:50→08:54)
--- NOTE | 2024-09-09 08:08 | PCM.DC.SUM ---
Providers Date of Admission: 09/07/24 Primary Care Physician: Viktoriya Segura PA-C Reason For Visit: C SECTION/CSECTION DELIVERY Diagnosis Discharge Diagnosis (1) delivery delivered: Status: Acute Code(s): O82 - Encounter for delivery without indication (2) Gestational diabetes mellitus (GDM) affecting , antepartum: Status: Acute Code(s): O24.419 - Gestational diabetes mellitus in , unspecified control Medications at Discharge Home Medications multivit-min no.71-iron fum 28 mg-folate no.1 1 mg-dha 300 mg capsule (PNV-[place]) cap PO DAILY 01/30/24 blood sugar diagnostic (Blood Glucose Test strips) #50 ea 07/02/24 blood-glucose meter #1 ea 07/02/24 lancets 30 gauge (Droplet Lancets) #200 ea 07/02/24 hydrocodone-acetaminophen 5-325mg 5mg-325mg 1 tab PO Q6H PRN pain 5 days #20 tabs 09/07/24 naproxen 500 mg tablet 500 mg PO BID PRN PRN Pain #30 tabs 09/07/24 Hospital Course Operations section Summary of Care Provided Minutes Spent on Discharge: 10 Hospital Course: The patient was admitted to L&D for a scheduled section on 09/07/24. She recovered well on POD#0. On POD #1 she was ambulating and thorpe was removed. She was eating a regular diet. On POD#2 she was feeling well and using pain medication sparingly. She requested discharge to home. on 09/09/24 a discharge order was placed and she was sent home in stable condition. Physical Exam HEENT normocephalic Resp normal respiratory effort and normal air movement GI soft to palpation, non-tender and non-distended Rectal Exam: other Other Details: Incision is clean, dry, and intact no CVA tenderness Extremity normal to inspection General Extremity: edema bilateral (trace ) Weight / BMI Weight Weight: 203 lb Body Mass Index (BMI) 35.9 ABG / Lab / Microbiology Data 09/08/24 06:25 D/C Instructions Discharge Diet: No restrictions Discharge Activity: May Not Drive (for 1 week) May shower in (days): 0 May resume sexual activity in: 4-6 weeks Weight Bearing Status: Full weight bearing Lifting Restrictions: 10 pounds Call your doctor if your incision/area has: Continuous Slow Oozing, Sudden Increased Bleeding, Increased Pain/ Swelling, Increased Redness and Foul Smelling Discharge Call your doctor if you observe: Fever of 101 or Higher and Using more than 1 pad per hour (for 2 hours) Suture Line Care: Avoid Pulling/Pushing and Avoid Pinching/Bending Change Dressing in: leave in place till F/U Cleanse incision/area with: Soap & Water and Keep Dressing Clean & Dry DC O2, CPAP, BIPAP Needs Home O2 Discharge instructions: No Please Follow Up With: Elizabeth Alan MD When: Call [phone] to make an appointment for an incision check in 1-2 weeks. Meaningful Use Info Meaningful Use Meaningful Use Diagnoses (Choose all that apply): None applicable Ischemic Stroke Statin Dosing Therapy Reference: STATIN DOSE THERAPY REFERENCE: * Patients > 75 years receive moderate or high dose statin therapy. * Patients 75 years or YOUNGER should receive HIGH intensity statin dose unless contraindicated. You will be required to document reason for non-treatment if statin daily dose does not meet guidelines. HIGH DOSE STATIN THERAPY DAILY Atorvastatin > than or = to 40 mg Rosuvastatin > than or = to 20 mg Amlodipine + Atorvastatin > than or = to 2.5/40 mg Ezetimibe + Simvastatin 10/80 mg Simvastatin 80mg Discharge Plan Admission Admit Date/Time: 09/07/24 05:05 Attending Provider: Elizabeth Alan Primary Care Provider: Viktoriya Segura Discharge Orders/Prescriptions Prescriptions: New hydrocodone-acetaminophen 5-325 mg tablet 1 tab PO Q6H PRN (Reason: pain) 5 Days Qty: 20 0RF naproxen 500 mg tablet 500 mg PO BID PRN PRN (Reason: Pain) Qty: 30 1RF No Action PNV-[place] 28-1-300 mg capsule PO DAILY (DME) blood-glucose meter Misc See Rx Instructions .ROUTE .MEDSUPPLY Qty: 1 0RF Rx Instructions: As directed (DME) Blood Glucose Test Strip See Rx Instructions .ROUTE .MEDSUPPLY Qty: 50 6RF Rx Instructions: Check blood sugars Fasting and 2 hours after breakfast, lunch, and dinner. (DME) lancets [Droplet Lancets] 30 gauge misc See Rx Instructions .ROUTE .MEDSUPPLY Qty: 200 2RF Rx Instructions: Check blood sugars fasting and 2 hours after breakfast, lunch, and supper. Referrals / Follow Up: Viktoriya Segura PA-C [Primary Care Provider] - Charges/Coding Multi Select Codes Visit Charges Visit Charges: 66725 Disch Hosp
[2024-09-09] MEDS: Senna/Docusate Sodium 1 Tablet PO (08:54)
[2024-09-09 11:48] VITALS: BP 121/73; PULSE 80; RESP 16; TEMP 36.9; O2SAT 98
== END 2024-09-09 15:30 | disposition home or self-care (01) | DRG 540 ==
PROVIDERS: Admitting Provider Obstetrics & Gynecology; PCP Family Medicine; Referring Provider Obstetrics & Gynecology; Visit Provider Obstetrics & Gynecology
PROC: 10D00Z1 Extraction of Products of Conception, Low, Open Approach (ICD-10-PCS; CPT 59514; principal; 2024-09-07 07:00)
DX: O24.429 Gestational diabetes mellitus in childbirth, unspecified control (principal); O99.214 Obesity complicating childbirth; F41.8 Other specified anxiety disorders; Z37.0 Single live birth; O99.344 Other mental disorders complicating childbirth; Z3A.39 39 weeks gestation of pregnancy
CPT/HCPCS: 59025; 59050; 82962; 85025; 85027; 86780; 86850; 86900; 86901; 93005; 99221; J7120; A4216; G0378; J2405

== ENCOUNTER → 2024-09-21 | Outpatient (CLI) | payer MEDICAID, SELFPAY | END | disposition home or self-care (01) | LOC: LABSPEC 11:54 | PROVIDERS: PCP Family Medicine; Referring Provider Nurse Practitioner Women's Health; Visit Provider Nurse Practitioner Women's Health | DX: R30.0 Dysuria (principal) | CPT/HCPCS: 87086; 87088 ==